=== PATIENT | female | born 1930 | race Caucasian/White ===

== ENCOUNTER 2016-10-19 18:42 | Inpatient (IN) | payer OTHER ==
[2016-10-19] MEDS ORDERED: NS 2,000 ML ONE (19:12)
[2016-10-19] MEDS ORDERED: NS 1,000 ML IV ONE ×4 (19:29→21:29)
--- NOTE | 2016-10-19 19:32 | PROVIDER DOCUMENTATION ---
HPI-Cardiac General - General Chief Complaint: N/V/D Stated Complaint: NAUSEA, DIARRHEA, ABNORMAL LABS Time Seen by Provider: 10/19/16 19:27 Source: patient Allergies/Adverse Reactions: Patient Allergies Allergy/AdvReac Type Severity Reaction Status Date / Time No Known Allergies Allergy Verified 10/19/16 20:30 Home Medications: Home Medication List Medication Instructions Recorded Confirmed Last Taken Type Glucosamine/D3/Boswellia Pepper 1 each PO QAM 10/03/16 10/19/16 10/18/16 10:00 History [Osteo Bi-Flex Caplet] Levothyroxine [Synthroid] 75 microgm PO QAM 10/03/16 10/19/16 10/19/16 06:00 History Lorazepam [Ativan] 0.5 mg PO QPM 10/03/16 10/19/16 10/18/16 22:00 History Losartan Potassium 12.5 mg PO QAM 10/03/16 10/19/16 10/18/16 History Mupirocin Ointment [Bactroban 1 applicatn TOP TID 10/03/16 10/19/16 10/19/16 06: 30 History Ointment] Omeprazole 40 mg PO QAM 10/03/16 10/19/16 10/19/16 06:00 History SIMVAstatin [Zocor] 40 mg PO QHS 10/03/16 10/19/16 10/18/16 17:00 History Acetaminophen [Tylenol] 650 mg PO Q4H PRN PRN #0 tablet 10/17/16 10/19/16 Unknown Rx Diltiazem [Cardizem] 60 mg PO Q6H #0 tablet 10/17/16 10/19/16 10/19/16 04:00 Rx Hydrocortisone 2.5% Cream 1 gm MN BID #0 tube 10/17/16 10/19/16 10/18/16 10:00 Rx [Anusol-Hc Cream] Magnesium Oxide [Mag-Ox] 800 mg PO BID #0 tablet 10/17/16 10/19/16 10/18/16 10: 00 Rx Menthol/Zinc Oxide Ointment 1 gm TOP PRN PRN #0 tube 10/17/16 10/19/16 Unknown Rx [Calmoseptine Ointment] Ubidecarenone [Co Q-10] 200 mg PO QAM 10/19/16 10/19/16 10/18/16 10:00 History - History of Present Illness-Cardiac Nature of Presenting Problem: Pt is a 86 yof who presents to ER via EMS from [facility] with CC of hypotension. Pt's caregiver reports that pt was recently discharged from hospital after being admitted for 8 days for rectal bleeding. On exam, pt's 1st recorded B/P was 52/25, 2nd reading was 72/40. Pt's caregiver reports that pt has had a loss of appetite and 10 episodes of diarrhea today. Quality of Pain: reports: none Severity in ED: mild Onset/Duration: just prior to arrival Timing: still present Context/Activities at Onset: reports: light activity Associated Symptoms: reports: fatigue, syncope (near-syncope), weakness. denies : edema, nausea, rash, shortness of breath, vomiting Review of Systems - Adult - REVIEW OF SYSTEMS - ADULT Constitutional: reports: fatique. denies: chills, fever, night sweats Eyes: reports: no symptoms reported Ears, Nose, Mouth & Throat: reports: no symptoms reported Cardiovascular: reports: irregular heart rate, syncope (near-syncope; B/P 52/25) . denies: chest pain, edema, heart murmur, orthopnea, palpitations, poor circulation Respiratory: reports: no symptoms reported Gastrointestinal: reports: diarrhea, poor appetite. denies: abdominal pain, hematemesis, constipation, difficulty swallowing, frequent heartburn, nausea, rectal bleeding, vomiting Genitourinary: reports: no symptoms reported Musculoskeletal: reports: no symptoms reported Integumentary: reports: no symptoms reported Neurological: reports: no symptoms reported Psychiatric: reports: no symptoms reported Endocrine: reports: no symptoms reported Hematologic/Lymphatic: reports: no symptoms reported Allergic/Immunologic: reports: no symptoms reported All Other Systems: Reviewed and Negative Past History - Adult - PAST MEDICAL HISTORY-ADULT Review of Records: reports: Nursing Assessment Review, Medications Reviewed Cardiovascular: reports: A-Fib, HTN Endocrine/Immune: reports: thyroid disorder - PRIOR SURGERIES/PROCEDURES Surgical/Procedure History: reports: appendectomy, cholecystectomy, hysterectomy , tonsillectomy, orthopedic (extremity) (toe surgery), other (cataract removal) - IMMUNIZATION STATUS Childhood Immunizations: See Nurse Assessment Flu Vaccine: See Nurse Assessment Physical Exam-General - PHYSICAL EXAM-ADULT Initial Vital Signs Reviewed: Yes - CONSTITUTIONAL General Appearance: alert, moderate distress, lethargic, slow to respond - NECK Neck: non-tender, full range of motion, supple - RESPIRATORY Respiratory: chest non-tender, lungs clear, normal breath sounds - CARDIOVASCULAR Cardiovascular: regular rate, rhythm, other (hypotensive (52/25)) - GASTROINTESTINAL (ABDOMEN) Abdominal Exam: normal bowel sounds, non tender, soft - NEUROLOGIC Neurologic: grossly normal, no motor/sensory deficits - PSYCHIATRIC Psych/Mental Status: normal mood/affect, normal thought content, normal thought process, oriented x 3, depressed affect Progress - PLAN OF CARE/RESULTS Progress/Plan/Lab Results: POC: Labs On exam, Dr. Mendiola talked to pt's son over the phone, who reported that pt is DNR. Vital Signs - 24 hr 10/19/16 10/19/16 10/19/16 18:53 19:00 19:10 Temperature 97.5 F L Pulse Rate 71 69 Respiratory 20 15 Rate Blood Pressure 70/42 70/42 67/43 O2 Sat by Pulse 95 98 Oximetry 10/19/16 10/19/16 20:05 20:39 Temperature Pulse Rate 88 Respiratory 19 20 Rate Blood Pressure 76/41 66/41 O2 Sat by Pulse 99 96 Oximetry Orders Category Date Time Status DNR [Resuscitation Status] Routine Care 10/19/16 19:45 Ordered CHEST-PORTABLE [RAD] Stat Exams 10/19/16 19:47 Taken CBC WITH ELECTRONIC DIFF [HEME] Stat Lab 10/19/16 19:40 Completed COMPREHENSIVE METABOLIC PANEL [CHEM] Stat Lab 10/19/16 19:40 Completed TYPE & SCREEN [BBK] Stat Lab 10/19/16 19:40 Completed 0.9% Sodium Chloride Inj [Ns] 1,000 ml Med 10/19/16 19:12 Discontinued .ROUTE As Directed 0.9% Sodium Chloride Inj [Ns] 1,000 ml Med 10/19/16 19:29 Discontinued IV 999 mls/hr 0.9% Sodium Chloride Inj [Ns] 1,000 ml Med 10/19/16 20:29 Active IV 999 mls/hr EKG [EKG] Stat Ther 10/19/16 19:31 Ordered Laboratory Tests 10/19/16 10/19/16 10/19/16 19:40 19:40 19:40 WBC 12.47 H RBC 2.91 L Hgb 8.7 L Hct 27.7 L MCV 95.2 MCH 29.9 MCHC 31.4 L RDW Std Deviation 17.9 H Plt Count 256 MPV 9.3 Immature Gran % (Auto) 0.3 Neut % (Auto) 84.5 H Lymph % (Auto) 7.7 L Bibb % (Auto) 7.2 Eos % (Auto) 0.2 Baso % (Auto) 0.1 Immature Gran # (Auto) 0.04 Neut # (Auto) 10.54 H Lymph # (Auto) 0.96 L Bibb # (Auto) 0.90 H Eos # (Auto) 0.02 Baso # (Auto) 0.01 Sodium 135 L Potassium 3.1 L D Chloride 96 L Carbon Dioxide 26 Anion Gap 13 BUN 18 D Creatinine 1.4 H Estimated GFR/1.73 m2 36 BUN/Creatinine Ratio 13 Glucose 119 H Calculated Osmolality 273 Calcium 7.4 L D Total Bilirubin 0.43 AST 12 ALT 7 L Alkaline Phosphatase 94 Total Protein 4.2 L Albumin 2.2 L Globulin 2.0 Albumin/Globulin Ratio 1.1 Blood Type O POSITIVE Antibody Screen NEGATIVE - REASSESSMENT Reassessment #1 Time Reassessed: 20:00 Status: worsening (Pt's B/P was 58/23 and then 76/41; Pt's son was in the room and discussed pt's situation) - EKG 1 Time of EKG reading by physician:: 20:12 EKG Read and Signed by:: Juan Mendiola EKG Interpretation (*Must complete 3 of following elements*): Abnormal (L axis deviation; Septal infarct, age undetermined) - CONSULTS/PCP/HOSPITALIST Notification #1 *Consult/PCP/Hospitalist*: Dr. Lilly (Hospitalist) Time Discussed: 20:49 Consult Disposition: Admit Departure - Departure Time of Disposition Order: 20:50 DIAGNOSIS: Hypotension Qualifiers: Hypotension type: unspecified hypotension type Qualified Code(s): I95.9 - Hypotension, unspecified Disposition: ADMITTED INPATIENT 09 Certified Medical Emergency: Emergent Condition: Stable Additional Instructions: ED Follow Up Instructions: You have been treated by a care provider in the Emergency Department. These instructions are being provided to you so you can have an understanding of how to care for yourself upon discharge. Upon discharge from the Emergency Department, you are responsible for making arrangements for follow-up care by a physician of your choice. Take all prescribed medications as directed. Return to the Emergency Department immediately for any new or worsening symptoms. You may call the Physician Referral phone number at [phone] to obtain a list of Physicians who are taking new patients. Referrals: Samira Lester MD [Primary Care Provider] - - Critical Care Note Total Time (mins): 30 Critical Care Statement: This patient required my direct personal management to treat or rule out processes, the absence of which, could potentiallly result in sudden, clinically significant life or limb threatening deterioration. Attestation - Scribe Verification/Attestation Scribe:: Breezy Smiley Acting as Scribe for:: Juan Mendiola Scribkev documention review:: This chart was documented by a scribe and accurately reflects the service the provider performed and the decisions made by the provider.
[2016-10-19 19:55] LABS: MANUAL DIFF NEEDED? NO
[2016-10-19 20:03] LABS: BASO% 0.1 % (0.0-0.8); EOS# 0.02 X1000 (0.0-0.7); EOS% 0.2 % (0.0-10.0); HEMATOCRIT 27.7 % (37.0-47.0); HEMOGLOBIN 8.7 g/dL (12.0-16.0); IMM GRAN# 0.04 X1000 (0.0-0.04); IMM GRAN% 0.3 % (0.0-0.5); LYMPH# 0.96 X1000 (1.2-3.4); LYMPH% 7.7 % (20.5-51.1); MCH 29.9 PG (27-31); MCHC 31.4 g/dL (33-37); MCV 95.2 FL (81-99); MONO% 7.2 % (1.7-9.3); MPV 9.3 FL (7.4-10.4); NEUT% 84.5 % (42.2-75.2); PLT 256 X1000 (130-400); RBC 2.91 XMIL (4.2-5.4)
[2016-10-19 20:28] LABS: ALBUMIN 2.2 g/dL (3.5-5.0); CALCIUM 7.4 mg/dL (8.8-10.2); POTASSIUM 3.1 mmol/L (3.5-5.1); TOTAL BILIRUBIN 0.43 mg/dL (0.20-1.00); TOTAL PROTEIN 4.2 g/dL (6.3-8.3)
[2016-10-19] MEDS: LEVOPHED 8 MG in D5 1/2 NS 250 ML IV SCH ×3 (21:25→22:03)
[2016-10-19] MEDS: PROTONIX IV SCH (22:40)
[2016-10-19] MEDS: SODIUM CHLORIDE 0.9% INJ SCH (22:40)
[2016-10-19] MEDS: FLAGYL 500 MG/NS 100 ML IV SCH (23:00)
[2016-10-20] MEDS: POTASSIUM CHLORIDE 20 MEQ/SWI 100 ML IV SCH ×2 (00:12→01:46)
[2016-10-20] MEDS ORDERED: NS 250 ML ONE (01:07)
[2016-10-20] MEDS: CARDIZEM PO SCH ×6 (01:40→23:12)
[2016-10-20] MEDS: CALMOSEPTINE OINTMENT TOP PRN (01:46)
[2016-10-20 03:41] LABS: BASO% 0.1 % (0.0-0.8); EOS# 0.01 X1000 (0.0-0.7); EOS% 0.1 % (0.0-10.0); HEMATOCRIT 35.8 % (37.0-47.0); HEMOGLOBIN 11.9 g/dL (12.0-16.0); IMM GRAN# 0.05 X1000 (0.0-0.04); IMM GRAN% 0.4 % (0.0-0.5); LYMPH# 0.99 X1000 (1.2-3.4); LYMPH% 7.4 % (20.5-51.1); MANUAL DIFF NEEDED? NO; MCH 30.8 PG (27-31); MCHC 33.2 g/dL (33-37); MCV 92.7 FL (81-99); MONO# 0.88 X1000 (0.11-0.59); MONO% 6.5 % (1.7-9.3); MPV 9.2 FL (7.4-10.4); NEUT% 85.5 % (42.2-75.2); PLT 295 X1000 (130-400); RBC 3.86 XMIL (4.2-5.4)
[2016-10-20 03:55] LABS: MAGNESIUM 1.8 mg/dL (1.5-2.7); POTASSIUM 3.9 mmol/L (3.5-5.1)
[2016-10-20] MEDS: FLAGYL 500 MG/NS 100 ML IV SCH ×4 (04:15→22:30)
--- NOTE | 2016-10-20 06:48 | HISTORY AND PHYSICAL ---
PRIMARY CARE PROVIDER: I believe is Dr. Guille Benz CHIEF COMPLAINT: Diarrhea. HISTORY OF PRESENT ILLNESS: This is an 86-year-old female, who was previously a patient of Dr. Sanchez, who I believe Dr. Guille Benz has been seeing. She was recently admitted on 10/03/2016 with a suspected GI bleed and transfused; however, she, to my knowledge, never had any EGD performed or a colonoscopy related to the acuity of her illness. 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 They both agree that she is a do not resuscitate level 1. She has a history of atrial fibrillation and was on Eliquis, which was stopped after her bleeding. She also has hypertension, hypothyroidism and Fuchs' dystrophy, which has caused her to have multiple eye surgeries. At any rate, she states that she had roughly 10 loose stools, which her caregiver stated had a peculiar smell. She came into the emergency room and was noted to be hypotensive with a blood pressure first noted of 58/23 and she was given fluid bolusing x3 L and will be admitted to the ICU for further evaluation and treatment. PAST MEDICAL HISTORY: 1. Atrial fibrillation, previously anticoagulated with Eliquis which was stopped on her last admission to the hospital. 2. Hypertension. 3. Hypothyroidism. 4. Carbuncle which had an I D. 5. Sebaceous cyst of her right lower pelvis which had an I D. 6. Chronic kidney disease. 7. Anxiety. 8. GERD. 9. Diverticulosis. 10. Osteoarthritis. 11. Hyperlipidemia. PREVIOUS SURGICAL HISTORY: 1. Multiple eye surgeries. 2. Hysterectomy. 3. Cholecystectomy. 4. Appendectomy. 5. Tonsillectomy. 6. Toe surgery. 7. Cataract surgery. SOCIAL HISTORY: She has been at [facility] since her discharge. She has a full-time caregiver. Mom denies tobacco, alcohol or illicit drug use. Family is at bedside. Son is very attentive. FAMILY HISTORY: Positive for diabetes mellitus, hypertension chronic kidney disease and rheumatoid arthritis of first-degree relatives. ALLERGIES: No known drug allergies. HOME MEDICATIONS: 1. Ativan 0.5 mg p.o. q.a.m. 2. Losartan potassium 12.5 mg p.o. q.a.m. 3. Zocor 40 mg p.o. at bedtime. 4. Omeprazole 40 mg p.o. q.a.m. 5. Synthroid 75 mcg p.o. q.a.m. 6. Osteo Bi-Flex 1 p.o. q.a.m. 7. Bactroban appointment 1 topically t.i.d. 8. Tylenol 650 p.o. q.4 h p.r.n. 9. Cardizem 60 mg p.o. q.6 h p.r.n. 10. Anusol HC 1 g b.i.d. 11. Magnesium oxide 800 mg p.o. b.i.d. 12. Calmoseptine ointment 1 topically p.r.n. 13. CoQ10 200 mg p.o. q.a.m. REVIEW OF SYSTEMS: Fourteen point review of systems conducted with the patient. She is positive for nausea with no vomiting and diarrhea. Denies hematochezia or melena. Denies dysuria. Positive for abdominal cramping. Denies chest pain, dizziness. Other pertinent positives for admission are listed above in the HPI. PHYSICAL EXAMINATION: VITAL SIGNS: Temperature 97.5 degrees, pulse 88, respirations 20, blood pressure 66/41, oxygen saturation 96% on 3 L nasal cannula. GENERAL: A pleasant 86-year-old female, lying in the ER bed, answers all questions appropriately. Does carry a diagnosis of mild dementia; however, she was alert and oriented x3. HEENT: Head is atraumatic, normocephalic. Pupils equal, round, reactive to light. Extraocular eye movement intact. Sclerae is anicteric. Conjunctivae is very pale. Oral mucosa dry. Lips were noted to be chapped. NECK: Supple. Mild skin tenting was noted. No JVD. No carotid bruit on auscultation. Trachea is midline. CARDIAC: Irregular rhythm. S1-S2 appreciated. No murmurs, gallops, or rubs. LUNGS: Clear to auscultation bilaterally. No rhonchi, wheezes or rales. ABDOMEN: Soft, nondistended. Diffusely tender to palpation. Bowel sounds hyperactive in all 4 quadrants. No pulsatile mass. No organomegaly. SKIN: Pale, warm dry and intact. No acute lesions or rash. NEUROLOGICAL: Alert and oriented x3. No focal or motor deficits noted. GENITOURINARY: Patient voids. No bladder distention. Otherwise deferred. LABORATORY DATA: WBC 12.47, hemoglobin 8.7, hematocrit 27.7, platelet count 256,000. Sodium 135, potassium 3.1, chloride 96, carbon dioxide 26, BUN 18, creatinine 1.4, glucose 119. ASSESSMENT AND PLAN: 1. Anemia likely secondary to gastrointestinal bleed. We will consult Dr. Foss. Transfuse 1 unit of packed red blood cells. Check hemoglobin and hematocrit q.4 hours. Start Protonix 40 mg intravenous push q.12 hours. 2. Acute kidney injury. The patient was given 3 L fluid bolus. We will continue normal saline at 150 mL an hour. 3. Fluid volume depletion. See #2. 4. Hypokalemia. Patient's potassium was marginally low; however, she appears to be fluid volume depleted. We will give 20 mEq of potassium at this time. 5. Hypertension. Now hypotensive. Hold home medications. 6. Acute diarrhea. It is possible that this is the a secondary to gastrointestinal bleeding. Also the patient has been on antibiotics. We will treat with Flagyl 500 mg IV q.6 hours at this time. Send Clostridium difficile as well as, occult blood and stool culture. 7. Atrial fibrillation. Continue patient's Cardizem as she is hypotensive and will be on Levophed. 8. Hypothyroidism. Continue Synthroid. 9. Further recommendations per patient clinical course. 10. Code status discussed with patient and son at bedside. The patient will be DNR level 1 and then. Dictated by LITO Basilio for Ca Lilly MD
--- NOTE | 2016-10-20 07:18 | Diag Imaging Result Document ---
PROCEDURE NAME: CHEST-PORTABLE - 10/19/2016 SINGLE FRONTAL RADIOGRAPH OF THE CHEST: COMPARISON: 10/15/2016. FINDINGS: Lung volumes are low, similar to the previous study. Linear atelectasis at the lower lung zone on the left appears to have improved somewhat. No new consolidations are identified. There is a stable large hiatal hernia. Cardiac silhouette is unchanged. IMPRESSION: Slight improvement of mild subsegmental atelectasis at the left lower lung zone. Essentially stable, otherwise.
[2016-10-20] MEDS: PROTONIX IV SCH ×2 (09:14→23:09)
[2016-10-20] MEDS: ANUSOL-HC CREAM PR SCH ×2 (09:14→20:55)
[2016-10-20] MEDS: BACTROBAN OINTMENT TOP SCH ×3 (09:14→16:37)
[2016-10-20] MEDS: SYNTHROID PO SCH (09:14)
[2016-10-20] MEDS: SODIUM CHLORIDE 0.9% INJ SCH ×2 (09:14→23:09)
[2016-10-20 10:10] LABS: HEMATOCRIT 34.4 % (37.0-47.0); HEMOGLOBIN 11.3 g/dL (12.0-16.0)
[2016-10-20] MEDS: NS 1,000 ML IV SCH ×2 (11:47→23:12)
[2016-10-20] MEDS: MERREM 500 MG in NS 50 ML IV SCH ×2 (12:04→18:22)
[2016-10-20] MEDS: LEVOPHED 8 MG in D5 1/2 NS 250 ML IV SCH (12:06)
[2016-10-20 12:44] LABS: HEMATOCRIT 36.6 % (37.0-47.0); HEMOGLOBIN 11.8 g/dL (12.0-16.0)
--- NOTE | 2016-10-20 13:12 | PROGRESS NOTE ---
DATE: 10/20/2016 SUBJECTIVE: Today Ms. Stein refers to be doing fine. I understand she got transferred from the rehab center here because she was hypotensive and having profuse diarrhea. Upon presentation, she was found to have a blood pressure of 58/23. OBJECTIVE: Vital Signs: Blood pressure is 108/60, pulse of 94, respiration is 15, temperature is 98.2 degrees. General exam: Ms. Stein is an 86-year-old, female. She is in bed. She did not seem to be in any remarkable distress. HEENT: Mucosa is pink and moist. Anicteric. Acyanotic. Neck: Neck is supple. Chest: Good air entry bilaterally. No crepitations. No rhonchi. Cardiovascular: Regular rate and rhythm. Abdomen: Soft, mildly tender. Bowel sounds are present. Extremities: No pedal edema. [employer]: Patient is alert, seems to be mildly disoriented. LABORATORY DATA: WBC is 13.44, hemoglobin is 11.3, platelet count of 296. Sodium is 128, potassium is 3.9, chloride is 102, bicarbonate is 25, creatinine is 1.2, glucose is 141. ASSESSMENT: 1. Hypotension, unclear source, but it is very likely patient had volume depletion from excessive diarrhea and became hypotensive. It could also be hemoglobin and hematocrit is ridiculously lower than when she was last discharged, so she could be gastrointestinal bleed. Lastly, this could be sepsis. She was started on metronidazole for gastrointestinal coverage. I am going to add meropenem for a broader coverage. We will put in a Ross catheter, monitor intake/output, start her on some intravenous fluids since she continues to be hypotensive even on pressors, we will do a cortisol level to see what is the stress response. 2. Profuse diarrhea in the residential. Over here, the patient has not had any bowel movement. The patient was on antibiotics before, so there is always the risk of Clostridium difficile. Other lab studies have been ordered. Patient has prophylactically been started on intravenous metronidazole. If this is confirmed, will probably have to add oral vancomycin. 3. History of atrial fibrillation currently rate controlled. 4. Acute kidney injury likely from volume depletion. Patient is getting intravenous fluids. 5. Normocytic anemia of acute blood loss likely from the gastrointestinal tract. We have not had any sample yet to look for occult blood. However, patient does not seemingly have an overt hematemesis or melena or enterorrhagia. Will however wait to test this whenever she has a bowel movement. Patient is already on BID proton pump inhibitor at least for now, and let gastroenterology review her at a later date. I have discussed her with Dr Whitney who is her PCP and will move her to his service. MTDD
[2016-10-20 13:44] LABS: URINE CULTURE NEEDED? NO; URINE SOURCE CATH
[2016-10-20 13:49] LABS: BILIRUBIN URINE NEGATIVE (NEGATIVE); BLOOD URINE NEGATIVE (NEGATIVE); COLOR YELLOW; GLUCOSE URINE NEGATIVE (NEGATIVE); LEUKOCYTES URINE NEGATIVE (NEGATIVE); NITRITE URINE NEGATIVE (NEGATIVE); PROTEIN URINE TRACE mg/dL (NEGATIVE); SP GRAVITY URINE 1.012; TURBIDITY URINE CLEAR (CLEAR); URINE MICRO REVIEW NEEDED? YES; UROBILINOGEN URINE NORMAL (NORMAL)
[2016-10-20 14:17] LABS: UR EPITHELIAL CELLS <10 /HPF (<10); URINE BACTERIA NEGATIVE /HPF; URINE RBC <10 /HPF (<10); URINE WBC <10 /HPF (<10)
[2016-10-20 14:24] LABS: URINE CASTS NONE SEEN
--- NOTE | 2016-10-20 14:46 | PROGRESS NOTE ---
DATE: 10/20/2016 Came in with diarrhea. 86-year-old female, previously a patient of Dr. Sanchez. The patient was admitted on 10/03/2016 with suspected GI bleed and transfused. At that time she was on Eliquis and had bleeding from the nose, diffuse bleeding from the GI tract. She has long history of atrial fibrillation. She stayed in atrial fibrillation. Was in delirium and confusion for several days and then slowly seemed to progress and started eating again and able to get out of the hospital but prolonged hospital stay. PAST MEDICAL HISTORY: 1. Atrial fib, chronic. We have elected to stop the Eliquis. Remains in atrial fib now, chronic atrial fibrillation. 2. Hypertension. 3. Hypothyroidism. 4. Carbuncle which we I and D'ed recently. 5. Sebaceous cyst in the right lower pelvis which had an I and D in my office. 6. Chronic kidney disease. 7. Anxiety. 8. Gastroesophageal reflux disease. 9. Diverticulosis. 10. Osteoarthritis. 11. Hyperlipidemia. PAST SURGICAL HISTORY: 1. Multiple eye surgeries. 2. Hysterectomy. 3. Cholecystectomy. 4. Appendectomy. 5. Tonsillectomy. 6. Toe surgery. 7. Cataract surgery. She was admitted, had anemia. Suspect that she had some GI bleeding. Dr. Foss consulted. He was not following last time but she was not in a shape to undergo EGD or colonoscopy at that time. I gave her 1 unit of packed red blood cells although hemoglobin was 8.7 when she arrived. Acute kidney injury. Serum creatinine was 1.4. We will give her some fluids. Fluid volume depletion. We will continue present fluids. Continue to be atrial fib. Watch rate. I have looked over orders. She is on Cardizem 30 mg p.o. q.6 hours, meropenem 500 mg q.8, levothyroxine 75 mcg q.a.m. Flagyl she is getting 500 mg q.6 hours.
[2016-10-20] MEDS: PRED FORTE 1% OPH SUSPENSION LEFT EYE SCH (16:36)
[2016-10-20 18:21] LABS: HEMATOCRIT 36.6 % (37.0-47.0); HEMOGLOBIN 11.7 g/dL (12.0-16.0)
[2016-10-20] MEDS: ATIVAN PO SCH (20:56)
[2016-10-20 21:49] LABS: HEMATOCRIT 36.4 % (37.0-47.0); HEMOGLOBIN 11.6 g/dL (12.0-16.0)
--- NOTE | 2016-10-20 23:30 | CONSULTATION ---
DATE OF CONSULTATION: 10/20/2016 REFERRING PHYSICIAN: Stoney Llanos M.D. PRIMARY CARE PHYSICIAN: Guille Benz M.D. PRIMARY DICE TABLE PERSON,: Demetrius Foss M.D. INDICATION FOR CONSULTATION: 1. Normocytic anemia. 2. Diarrhea. 3. Hypotension. HISTORY OF PRESENT ILLNESS: The patient is an 86-year-old white female who was recently admitted with a possible GI bleed while on Eliquis. Her GI bleed resolved without intervention. She was discharged to home on 10/17/2016. She was subsequently readmitted on 2016 with diarrhea greater than 10 bowel movements per day, hypotension with a blood pressure of 58 /23 and failure to thrive. She was noted to have a normocytic anemia thought possibly secondary to acute GI blood loss. However since admission she has had no defecation and no evidence of active bleeding. She was transfused 1 unit of blood and treated with IV fluids. We are asked to participate in her care due to the diarrhea and possible GI bleeding. PAST MEDICAL HISTORY: 1. Atrial fibrillation which is treated with Eliquis. 2. Hypertension. 3. Hypothyroidism. 4. Carbuncle. 5. Sedation cyst. 6. Chronic kidney disease. 7. Anxiety. 8. GERD. 9. Diverticulosis. 10. Osteoarthritis. 11. Hyperlipidemia. 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 13. Hiatal hernia. 14. Erosive esophagitis. 15. Erosive gastritis. 16. Erosive duodenitis. 17. Fundic gland polyp. 18. Nonbleeding colonic AVMs. 19. Adenomatous colon polyps. 20. Diverticulosis. 21. Internal hemorrhoids. 22. External hemorrhoids. PAST SURGICAL HISTORY: 1. Multiple eye surgeries. 2. Hysterectomy. 3. Cholecystectomy. 4. Appendectomy. 5. Tonsillectomy. 6. Toe surgery. 7. Cataract surgery. SOCIAL HISTORY: The patient has been at [facility] since her discharge. She has a full-time caregiver. There is no history of alcohol, tobacco, recreational drug use. FAMILY HISTORY: Positive for diabetes, hypertension, coronary artery disease and rheumatoid arthritis. MEDICATION ALLERGIES: None. HOME MEDICATIONS: 1. Ativan. 2. Losartan. 3. Zocor. 4. Omeprazole. 5. Synthroid. 6. Osteo Bi-Flex. 7. Bactroban. 8. Tylenol. 9. Cardizem. 10. Anusol. 11. Magnesium oxide. 12. . 13. CoQ10. REVIEW OF SYSTEMS: Unable to obtain as the patient was sleeping. According to the chart she complained of nausea earlier today but denies vomiting. There is diarrhea since hospital discharge. PHYSICAL EXAM: Vital signs: Her blood pressure is 104/44, pulse is 97, respirations 17, temperature of 97.5 degrees. HEENT: Unremarkable. Chest: Clear to auscultation with normal expiratory effort. Cardiovascular Exam: Reveals regular rate and rhythm with no gallops, rubs. Abdominal Exam: Reveals normoactive bowel sounds. The abdomen is soft and nontender. Extremities: Bilaterally are negative for cyanosis, clubbing, or edema. OBJECTIVE DATA: Reveals a hemoglobin of 8.7 with hematocrit of 27.7 and a white count of 12.47 with 256,000 platelets on admission. Posttransfusion on 10/20/2016 hemoglobin 11.6, hematocrit of 36.4 and white count of 13.44. She has 295,000 platelets. Sodium on 2016 reveals sodium of 138, potassium 3.9, chloride 102, CO2 of 25, BUN 16, creatinine 1.2 with a glucose 141. Calcium is 8.0 with magnesium 1.8. Her plasma lactate is 1.2 and cortisol 3.0. IMPRESSION: 1. Normocytic anemia. 2. Recent gastrointestinal bleed on Eliquis. 3. Diarrhea. 4. Leukocytosis. 5. Hypotension. 6. Atrial fibrillation. 7. Acute kidney injury. RECOMMENDATION: 1. From a GI perspective, I agree with plans to treat her with broad-spectrum antibiotics. 2. She has had no bowel movement today. Therefore, I would monitor her clinically. 3. I agree with checking stool for C. difficile toxin as well as fecal white blood cell. She was recently treated with antibiotics for urinary tract infection and therefore is at risk for C. difficile colitis. 4. Her hemoglobin has dropped considerably compared to her hemoglobin at time of discharge on 10/16/2016. I will defer to Dr. Demetrius Foss, who will return Saturday, to determine if she needs endoscopic intervention. She is at high risk for complications as she is on blood thinner and given her age as well as her comorbidity. 5. Will follow along with you. Please feel free to contact us over the weekend if you have any additional questions or there is a change in her clinical status. MARIS
[2016-10-21] MEDS: MERREM 500 MG in NS 50 ML IV SCH (02:30)
[2016-10-21] MEDS: FLAGYL 500 MG/NS 100 ML IV SCH ×4 (03:37→22:39)
[2016-10-21] MEDS: LEVOPHED 8 MG in D5 1/2 NS 250 ML IV SCH (04:24)
[2016-10-21] MEDS: CARDIZEM PO SCH ×4 (04:45→22:40)
[2016-10-21] MEDS ORDERED: CORTROSYN IV ONE (06:00)
[2016-10-21] MEDS: ANUSOL-HC CREAM PR SCH ×2 (08:44→20:03)
[2016-10-21] MEDS: QUESTRAN LIGHT PO SCH ×2 (08:44→21:12)
[2016-10-21] MEDS: PRED FORTE 1% OPH SUSPENSION LEFT EYE SCH ×3 (08:44→16:17)
--- NOTE | 2016-10-21 08:54 | PROGRESS NOTE ---
DATE: 10/21/2016 SUBJECTIVE: Ms. Stein is awake and alert. She is asking for some regular food. OBJECTIVE: Vital signs: Temperature 98.3, pulse 88, respirations 20, blood pressure 118/69. HEENT: Pupils are equal and round. Neck: CVP less than 6 cm. Lungs: Clear in all lung parekh. Cardiovascular: She remains in atrial fibrillation. Regular rhythm without murmurs. Abdomen: Soft. Skin: Warm and dry. Intake and output: Urine output over 800 mL. LABORATORY: Hematocrit stable at 36, hemoglobin 11. ASSESSMENT AND PLAN: 1. Normocytic anemia. Plan to treat her conservatively. Advance her diet. Will how we do. Hemoglobin and hematocrit are stable. I do not see any evidence of active bleeding at this point. 2. Acute kidney injury. Giving her some fluids. Will watch. 3. Hypokalemia. Supplemented. 4. Hypertension, aware. 5. Acute diarrhea. Patient has been on antibiotics with Flagyl for potential Clostridium difficile which was negative.
[2016-10-21] MEDS: PROTONIX IV SCH ×2 (09:19→22:39)
[2016-10-21] MEDS: SODIUM CHLORIDE 0.9% INJ SCH ×2 (09:19→22:39)
[2016-10-21] MEDS: BACTROBAN OINTMENT TOP SCH ×3 (09:19→16:18)
[2016-10-21] MEDS: SYNTHROID PO SCH (09:19)
[2016-10-21] MEDS: ZOFRAN IV PRN (10:05)
[2016-10-21] MEDS: NS 1,000 ML IV SCH ×3 (12:21→22:40)
[2016-10-21] MEDS: ATIVAN IV PRN (15:36)
[2016-10-21] MEDS: SOLU-CORTEF IV SCH ×2 (16:17→22:47)
[2016-10-21] MEDS: ATIVAN PO SCH (21:12)
[2016-10-22] MEDS: FLAGYL 500 MG/NS 100 ML IV SCH ×4 (03:50→22:05)
[2016-10-22] MEDS: ATIVAN IV PRN (03:59)
[2016-10-22] MEDS: CARDIZEM PO SCH ×4 (04:51→22:15)
--- NOTE | 2016-10-22 06:35 | EKG Report ---
Test Performed on : 10/19/2016 8:12:23 PM Test Reason : arrythmia Blood Pressure : / mmHG Vent. Rate : 073 BPM Atrial Rate : 073 BPM P-R Int : 220 ms QRS Dur : 090 ms QT Int : 462 ms P-R-T Axes : 042 -49 -08 degrees QTc Int : 508 ms Sinus rhythm. with marked sinus arrhythmia. with 1st degree AV block. Left axis deviation Septal infarct , age undetermined Abnormal ECG When compared with ECG of 05-OCT-2016 05:30, Sinus rhythm. has replaced Atrial fibrillation. Vent. rate has decreased BY [address] no longer depressed in Lateral leads Nonspecific T wave abnormality now evident in Inferior leads Nonspecific T wave abnormality, worse in Lateral leads Unconfirmed Result
[2016-10-22] MEDS: QUESTRAN LIGHT PO SCH ×2 (08:29→21:14)
[2016-10-22] MEDS: SOLU-CORTEF IV SCH ×3 (08:29→23:15)
[2016-10-22] MEDS: SYNTHROID PO SCH (08:29)
[2016-10-22] MEDS: ANUSOL-HC CREAM PR SCH ×2 (08:34→21:13)
[2016-10-22] MEDS: PRED FORTE 1% OPH SUSPENSION LEFT EYE SCH ×3 (08:35→16:23)
[2016-10-22] MEDS: NS 1,000 ML IV SCH ×2 (09:23→22:04)
[2016-10-22] MEDS: TYLENOL PO PRN ×3 (09:24→22:15)
[2016-10-22] MEDS: SODIUM CHLORIDE 0.9% INJ SCH ×2 (09:24→22:05)
[2016-10-22] MEDS: PROTONIX IV SCH ×2 (09:24→22:04)
[2016-10-22] MEDS: BACTROBAN OINTMENT TOP SCH ×3 (09:24→16:23)
--- NOTE | 2016-10-22 09:48 | PROGRESS NOTE ---
DATE: 10/22/2016 SUBJECTIVE: Ms. Stein had some confusion last night. Tried to pull out her IV. She appears comfortable this morning. Blood pressure was fluctuating and had some hypotension. I started her on Solu-Cortef. It appears that she has adrenal insufficiency. No sign of active bleeding. OBJECTIVE: Vital signs: Temperature 97.6, pulse 100, respirations 17, blood pressure 111/54. Pupils are equal and round. CVP less than 6 cm. Lungs: Clear in all lung parekh. Cardiovascular: Regular rhythm and rate without murmur or S3. : Her urine output is 790 mL. LAB: Hematocrit has remained stable at 6. Chemistries from the 18 looked good. Creatinine back down to 1.2. ASSESSMENT AND PLAN: 1. Normocytic anemia, but she has had some blood loss anemia and her stools are guaiac positive. At this point, I do not see active brisk bleeding. Will continue to try and feed her. 2. Hypotension, suspect adrenal insufficiency on Solu-Cortef. Will back this down a little bit. 3. Acute kidney injury which is resolved with fluids. 4. Blood pressure, hypotension seems better on the Solu-Cortef. 5. Some diarrhea, loose stool, will watch. Stool studies thus far positive for blood. The C difficile was negative. No growth on blood cultures.
--- NOTE | 2016-10-22 15:53 | PROGRESS NOTE ---
DATE: 10/22/2016 SUBJECTIVE: The patient is lying in bed with restraints in place. She is somewhat alert but does have periods of confusion. From the nurse report, she has been pulling out her IV and trying to get up. She has had to be restrained. The nurse denies any visible active bleeding. No reported bright red blood or black stools. She has had some soft loose stools. Hemoccult was positive. Stool studies were negative for C. difficile. OBJECTIVE: General: Patient is somewhat alert but has periods of confusion. She has a history of dementia. I have talked with the sitters that are with her today. Respiratory: Lung sounds essentially clear. Abdomen: Soft, nontender. Positive bowel sounds. Vital Signs: Temperature 97.4 degrees, pulse 96, respirations 21, blood pressure 126/65. LABORATORY: Hematology on 10/20: WBC 13.44, hemoglobin 11.6, hematocrit 36.4. Chemistry: Sodium 138, potassium 3.9, chloride 102, CO2 25, BUN 16, creatinine 1.2, glucose 141. ASSESSMENT: 1. Anemia. Received 1 unit of packed red blood cells since been back in the hospital. 2. Hemoccult-positive stool. 3. Hypotension. Vital signs have been stable. 4. Dementia with confusion. PLAN: Continue supportive care. Continue to monitor hemoglobin and hematocrit. Monitor for any active bleeding. I will discuss this case with Dr. Foss about further plans and recommendations since she was readmitted to the hospital. Further plans will be made per him. Dictated by LITO Cote for Demetrius Foss MD
[2016-10-22] MEDS: ATIVAN PO SCH (21:14)
[2016-10-23] MEDS: FLAGYL 500 MG/NS 100 ML IV SCH ×2 (03:38→09:13)
[2016-10-23] MEDS: TYLENOL PO PRN ×3 (03:47→14:38)
[2016-10-23] MEDS: CARDIZEM PO SCH ×4 (05:33→22:46)
[2016-10-23] MEDS: SOLU-CORTEF IV SCH ×3 (07:49→23:31)
[2016-10-23] MEDS: ATIVAN IV PRN ×2 (07:50→14:39)
[2016-10-23] MEDS: SYNTHROID PO SCH (07:59)
[2016-10-23] MEDS: ANUSOL-HC CREAM PR SCH ×2 (07:59→22:46)
[2016-10-23] MEDS: QUESTRAN LIGHT PO SCH ×2 (07:59→22:54)
[2016-10-23] MEDS: PRED FORTE 1% OPH SUSPENSION LEFT EYE SCH ×3 (07:59→16:03)
[2016-10-23] MEDS: BACTROBAN OINTMENT TOP SCH ×3 (08:00→16:03)
[2016-10-23] MEDS: SODIUM CHLORIDE 0.9% INJ SCH ×2 (09:13→22:46)
[2016-10-23] MEDS: NS 1,000 ML IV SCH ×2 (09:13→22:55)
[2016-10-23] MEDS: PROTONIX IV SCH ×2 (09:13→22:46)
[2016-10-23] MEDS ORDERED: NS 500 ML IV ONE ×2 (09:30→15:38)
[2016-10-23 10:12] LABS: HEMATOCRIT 34.2 % (37.0-47.0); HEMOGLOBIN 10.9 g/dL (12.0-16.0); IMM GRAN# 0.03 X1000 (0.0-0.04); IMM GRAN% 0.5 % (0.0-0.5); LYMPH% 9.2 % (20.5-51.1); MANUAL DIFF NEEDED? YES; MCHC 31.9 g/dL (33-37); MCV 94.2 FL (81-99); MONO# 0.32 X1000 (0.11-0.59); MONO% 4.9 % (1.7-9.3); MPV 8.5 FL (7.4-10.4); NEUT% 85.4 % (42.2-75.2); PLT 324 X1000 (130-400); RBC 3.63 XMIL (4.2-5.4)
[2016-10-23 10:30] LABS: AGAP 10; ALBUMIN 2.5 g/dL (3.5-5.0); ALKALINE PHOSPHATASE 96 U/L (32-104); BUN 13 mg/dL (8-22); CALCIUM 8.1 mg/dL (8.8-10.2); CHLORIDE 109 mmol/L (98-107); COSMO 280; GOT 11 U/L (10-30); GPT 7 U/L (10-36); MAGNESIUM 1.5 mg/dL (1.5-2.7); POTASSIUM 3.9 mmol/L (3.5-5.1); SODIUM 139 mmol/L (136-145); TCO2 20 mmol/L (25-35); TOTAL BILIRUBIN 0.27 mg/dL (0.20-1.00); TOTAL PROTEIN 4.9 g/dL (6.3-8.3)
[2016-10-23 10:36] LABS: BANDS 2 % (0-1); LYMPHS 6 % (21-51); MONO 2 % (1-9)
--- NOTE | 2016-10-23 11:01 | Diag Imaging Result Document ---
PROCEDURE NAME: CHEST-PORTABLE - 10/23/2016 SINGLE FRONTAL RADIOGRAPH OF THE CHEST: COMPARISON: 10/19/2016. FINDINGS: Lung volumes are very low. There is likely an effusion that has developed on the right and probably on the left as well. Bibasilar atelectasis and/or infiltrate is probably slightly worse on the left. However, there has been interval development of right basilar atelectasis and/or infiltrate. Cardiac silhouette is stable. IMPRESSION: Bibasilar atelectasis and/or infiltrates that has developed during the interval on the right and likely bilateral effusions.
--- NOTE | 2016-10-23 14:03 | PROGRESS NOTE ---
DATE: 10/23/2016 SUBJECTIVE: Ms. Stein is more confused. The urine output is diminished. OBJECTIVE: Vital Signs: Blood pressure is doing better, temp 97.8 degrees, pulse 106 respirations 25, blood pressure 129/70. HEENT: Pupils are equal. CVP less than 6 cm. Lungs: Clear in all lung parekh anterior lateral. Cardiovascular exam: Regular rhythm and rate without murmur or S3. Abdomen: Soft. Skin: Warm and dry. : Urine output 700 mL. LABS: Hematocrit stable at 36 back on the . I will recheck some more with another CBC today. Electrolytes: Creatinine was last 1.2, so we will check those this morning. ASSESSMENT AND PLAN: 1. Diminished urine output. More confusion. The blood pressure is doing better. Decrease the Solu-Cortef. She has got an anemia which is stable. No sign of active bleeding. We will check her hematocrit again. Look through her orders. She is on Flagyl intravenous every 6 hours. I think I will stop that and see if it will help her confusion as well. 2. Delirium. Will decrease the Solu-Cortef. Stop the Flagyl. Note that Clostridium difficile was negative for antigen and toxin. 3. Decreased renal output. Check her serum creatinine and electrolytes again this morning. Fluids going in at 85 mL an hour. To recall, previous echocardiogram done in May 2016 showed well preserved left ventricular function.
--- NOTE | 2016-10-23 15:09 | PROGRESS NOTE ---
DATE: 10/23/2016 SUBJECTIVE: Patient is lying in bed. She is still restrained. She is alert to person and place but she still has periods of confusion where she tries to pull things out. She has a sitter at her bedside. She denies any complaints. OBJECTIVE: Generally: Patient is awake and alert to person and place but she has some periods of confusion and she pulls on her leads in IV. I have talked with the sitter. She states she had a formed bowel movement today. No noted bleeding. Respiratory: Lung sounds essentially clear. Abdomen: Soft, nontender, positive bowel sounds. Vital Signs: Temperature 97.8 degrees, pulse 108, respirations 26, blood pressure 136/75. LABORATORY: Hematology. White count 6.52, hemoglobin 10.9, hematocrit 34.2, MCV 94.2. Chemistry. Sodium 139, potassium 3.9, chloride 109, CO2 20, BUN 13, creatinine 0.7, glucose 148. ASSESSMENT AND PLAN: 1. Anemia. 2. History of gastrointestinal bleed. No active bleeding noted now. 3. Decreased urine output. Patient has received an intravenous fluid bolus. PLAN: Continue supportive care. Continue to monitor hemoglobin and hematocrit. Monitor for any active bleeding. Further plans will be made according to her symptoms and findings. We will continue to follow and be available as needed. Dictated by LITO Cote for Demetrius Foss MD
[2016-10-23] MEDS: HALDOL IV PRN ×2 (15:57→22:48)
[2016-10-23] MEDS: ATIVAN PO SCH (22:52)
[2016-10-24] MEDS: CARDIZEM PO SCH ×4 (05:33→20:00)
[2016-10-24] MEDS: HALDOL IV PRN (06:43)
[2016-10-24] MEDS: ATIVAN IV PRN ×2 (07:10→14:48)
--- NOTE | 2016-10-24 07:28 | Diag Imaging Result Document ---
PROCEDURE NAME: CHEST-PORTABLE - 10/24/2016 SINGLE FRONTAL RADIOGRAPH OF THE CHEST: COMPARISON: 10/23/2016. FINDINGS: Inspiration is slightly better than the previous study. There is likely a small effusion at least on the right that is probably stable given differences in inspiration. There is better aeration at both lung bases Subsegmental atelectasis has decreased slightly. No new consolidations identified. Cardiac silhouette is stable. IMPRESSION: Better inspiration with a slight decrease in atelectasis. Essentially stable, otherwise.
[2016-10-24] MEDS: SOLU-CORTEF IV SCH ×2 (07:55→18:55)
[2016-10-24] MEDS: QUESTRAN LIGHT PO SCH ×2 (08:00→20:02)
[2016-10-24] MEDS: SYNTHROID PO SCH (08:00)
[2016-10-24] MEDS: PRED FORTE 1% OPH SUSPENSION LEFT EYE SCH ×3 (08:01→20:02)
[2016-10-24] MEDS: BACTROBAN OINTMENT TOP SCH ×4 (08:01→20:11)
[2016-10-24] MEDS: ANUSOL-HC CREAM PR SCH ×2 (08:01→20:02)
--- NOTE | 2016-10-24 08:08 | EKG Report ---
Test Performed on : 10/24/2016 07:38:36 AM Test Reason : HR 130's - 160's Blood Pressure : / mmHG Vent. Rate : 160 BPM Atrial Rate : 141 BPM P-R Int : 000 ms QRS Dur : 086 ms QT Int : 310 ms P-R-T Axes : 000 -63 078 degrees QTc Int : 505 ms Atrial fibrillation. with rapid ventricular response. Left axis deviation Low voltage QRS Possible Anterolateral infarct (cited on or before 19-OCT-2016) Abnormal ECG When compared with ECG of 19-OCT-2016 20:12, (Unconfirmed) Atrial fibrillation. has replaced Normal sinus rhythm. Confirmed by Matti Thomas MD ([id number]) on 10/24/2016 9:48:29 PM
[2016-10-24 08:35] LABS: MANUAL DIFF NEEDED? NO
[2016-10-24 08:42] LABS: EOS# 0.06 X1000 (0.0-0.7); EOS% 0.7 % (0.0-10.0); HEMATOCRIT 36.6 % (37.0-47.0); HEMOGLOBIN 11.6 g/dL (12.0-16.0); IMM GRAN# 0.05 X1000 (0.0-0.04); IMM GRAN% 0.6 % (0.0-0.5); LYMPH# 0.65 X1000 (1.2-3.4); LYMPH% 7.7 % (20.5-51.1); MCH 30.4 PG (27-31); MCHC 31.7 g/dL (33-37); MCV 95.8 FL (81-99); MONO# 0.66 X1000 (0.11-0.59); MONO% 7.9 % (1.7-9.3); MPV 9.4 FL (7.4-10.4); NEUT% 83.1 % (42.2-75.2); PLT 298 X1000 (130-400); RBC 3.82 XMIL (4.2-5.4)
[2016-10-24 09:10] LABS: AGAP 14; BUN 14 mg/dL (8-22); CALCIUM 8.3 mg/dL (8.8-10.2); CHLORIDE 108 mmol/L (98-107); COSMO 279; POTASSIUM 4.9 mmol/L (3.5-5.1); SODIUM 139 mmol/L (136-145); TCO2 17 mmol/L (25-35)
[2016-10-24] MEDS: SODIUM CHLORIDE 0.9% INJ SCH (09:39)
[2016-10-24] MEDS: PROTONIX IV SCH (09:39)
[2016-10-24] MEDS: NS 1,000 ML IV SCH (09:39)
--- NOTE | 2016-10-24 11:26 | PROGRESS NOTE ---
DATE: 10/24/2016 SUBJECTIVE: Ms. Stein is doing a little better. She had some confusion. The Haldol worked pretty good yesterday, and this morning did not help much. I gave her a little bit of Ativan which helped. Urine output is improved marginally. Blood pressures remain fairly well. Heart rate did go up, she remains in atrial fibrillation and she is on Cardizem 30 mg q.6h. I went up to 60 mg q. 6h. PHYSICAL EXAMINATION: Vitals: Pulse 110 at present time. Respirations 24, blood pressure 126/85. CVP less than 6 cm. Lungs: Clear anterolateral. Cardiovascular regular: Regular rhythm and rate without murmur or S3. Abdomen: Soft. Skin: Warm and dry. Genitourinary: Good urine output. LAB: White count 8390, hematocrit 36, platelet count 298,000. Sodium 139, potassium 4.9, chloride 108, bicarb was 17, BUN 14, creatinine 0.8. ASSESSMENT AND PLAN: 1. Decrease her atelectasis, respiratory effort good. Lungs appear to have good air and gas exchange. 2. Delirium. Seems a little better. Haldol seemed to be effective yesterday. Ativan seemed to be more effective this morning. 3. Adrenal insufficiency. 4. Hypotension. I have decreased the hydrocortisone and she seems to be doing better. 5. Atrial fibrillation with rapid rate. I have increased the Cardizem. Encourage p.o. intake. See if we can move her to [facility] .
[2016-10-24] MEDS ORDERED: LASIX IV ONE (15:15)
[2016-10-24] MEDS ORDERED: NS 1,000 ML IV SCH (15:16)
[2016-10-24] MEDS: DUONEB (A & A) INH PRN ×2 (15:21→17:42)
[2016-10-24] MEDS: LOVENOX SUBQ SCH (18:10)
[2016-10-24] MEDS: ATIVAN PO SCH (19:59)
[2016-10-24] MEDS: CALMOSEPTINE OINTMENT TOP PRN (20:14)
[2016-10-24] MEDS: NS 500 ML IV SCH (20:23)
[2016-10-24] MEDS: ZOSYN 3.375 GM/NS 50 ML IV SCH (20:23)
[2016-10-24] MEDS ORDERED: CARDIZEM IV ONE (23:16)
[2016-10-25] MEDS: CARDIZEM 100 MG/NS 100 ML IV SCH ×4 (00:02→20:01)
[2016-10-25] MEDS: ATIVAN IV PRN ×2 (00:03→04:52)
[2016-10-25] MEDS: PROTONIX IV SCH ×3 (01:49→23:09)
[2016-10-25] MEDS: SODIUM CHLORIDE 0.9% INJ SCH ×2 (01:49→10:13)
[2016-10-25] MEDS: HALDOL IV PRN (01:50)
[2016-10-25] MEDS: SOLU-CORTEF IV SCH ×4 (01:50→23:09)
[2016-10-25] MEDS: CARDIZEM PO SCH (04:57)
[2016-10-25] MEDS: ZOSYN 3.375 GM/NS 50 ML IV SCH ×4 (05:14→20:01)
[2016-10-25] MEDS: LOVENOX SUBQ SCH ×2 (05:14→17:10)
--- NOTE | 2016-10-25 07:48 | Diag Imaging Result Document ---
PROCEDURE NAME: ABD/PELVIS/PULM ARTERIES - 10/24/2016 CTA CHEST: COMPARISON: None available. FINDINGS: There is a prominent filling defect seen in the distal left main pulmonary artery consistent with acute pulmonary embolism. There is patchy atherosclerotic disease throughout the aorta. There is aneurysmal dilation of the ascending aorta measuring up to 4.2 cm in diameter. There is cardiomegaly. There is a fairly prominent hiatal hernia that has shifted toward the left. There is a small left pleural effusion and a esiqfzsz-es-sujnf size right pleural effusion. There is bibasilar atelectasis. No obvious pulmonary infarct can be identified at this time. There is diffuse anasarca involving the surrounding soft tissues. There are severe degenerative changes involving the shoulder, and there are degenerative changes throughout the spine. IMPRESSION: 1. Acute pulmonary embolism with a filling defect in the left main pulmonary artery as described. 2. Cardiomegaly. 3. Aneurysmal dilation of the ascending aorta. 4. Bilateral pleural effusions, largest on the right with bibasilar atelectasis. 5. Diffuse anasarca.
[2016-10-25] MEDS: DUONEB (A & A) INH PRN ×4 (08:15→19:11)
[2016-10-25] MEDS ORDERED: LASIX IV ONE (09:02)
[2016-10-25] MEDS: SYNTHROID PO SCH (09:03)
[2016-10-25] MEDS: QUESTRAN LIGHT PO SCH ×2 (09:04→20:02)
[2016-10-25] MEDS: BACTROBAN OINTMENT TOP SCH ×3 (09:05→20:02)
[2016-10-25] MEDS: ANUSOL-HC CREAM PR SCH ×2 (09:05→20:02)
[2016-10-25] MEDS: PRED FORTE 1% OPH SUSPENSION LEFT EYE SCH ×3 (09:05→20:02)
[2016-10-25 09:47] LABS: ALLEN TEST YES; BE -6.3 mmoll (-3.0-3.0); BLOOD TYPE ARTERIAL; DRAW SITE R RADIAL; METHB 1.5 % (0.0-1.5); PCO2(98.6) 29 mmHg (35-45); PO2(98.6) 53 mmHg (60-100); SAMPLE BLOOD; SAO2 91.8 % (95.0-100.0); THB 11.1 g/dL (11.5-17.4); pH(98.6) 7.39 (7.35-7.45)
[2016-10-25 09:49] LABS: MODALITY CANNULA
[2016-10-25] MEDS: NS 1,000 ML IV SCH (10:12)
--- NOTE | 2016-10-25 10:16 | PROGRESS NOTE ---
DATE: 10/25/2016 SUBJECTIVE: Ms. Stein is breathing a little better, less wheezing. There is still some confusion, although this seems a little better today. I did an abdominal and pelvic CT. Acute pulmonary embolism detected left main pulmonary artery as described. Aneurysm dilatation of the ascending aorta, bilateral pleural effusions, larger on the right. Bibasilar atelectasis and diffuse anasarca. OBJECTIVE: Vital Signs: Temperature 98.0 degrees, pulse 121, respirations 28. HEENT: Pupils were equal and round. CVP around 8 cm. Lungs: Decreased breath sounds both bases. She has some wheezing and expiratory wheezing. Prolonged expiratory phase. Abdomen: Soft, nontender. Extremities: She has a 1+ edema. LABORATORY DATA: Urine output is 1377. White count 8390, hematocrit was 36, platelet count 298,000. Sodium 139, potassium 4.9, chloride 108, bicarb 17, BUN 14, creatinine 0.8. ASSESSMENT AND PLAN: 1. Pulmonary thromboemboli, bronchospasm. Continue breathing treatments. Back on Lovenox. 2. Gastrointestinal bleed which is concerning. Back on Lovenox. I would like to avoid an inferior vena cava filter but this may be something that is forced on us. 3. Adrenal insufficiency. Continue Solu-Cortef. 4. Hypotension related to adrenal insufficiency and pulmonary thromboemboli. 5. Atrial fibrillation. I put her on a Cardizem drip. Note CT of her chest suggests pleural effusion and I have decreased her fluids. I am going to 21 mL of normal saline every hour. I am going to start her on some Lasix q.12 hours to see if this will help. Encouraged her to try and get some food down. Use BiPAP as necessary. Ask Pulmonary to assist in decision process.
--- NOTE | 2016-10-25 13:55 | CONSULTATION ---
DATE OF CONSULTATION: 10/25/2016 REFERRING PHYSICIAN: Dr. Benz. CHIEF COMPLAINT: Initially was diarrhea. HISTORY OF PRESENT ILLNESS: This is an 86-year-old female with a past medical history of atrial fibrillation, hypertension, hypothyroidism, anxiety, GERD, diverticulosis, osteoarthritis, hyperlipidemia, that initially presented to the hospital with complaints of diarrhea. The patient does have a history of atrial fibrillation and was being treated with Eliquis but this was stopped after she had a gastrointestinal bleed. Since then she has not developed a PTE. The family agrees that the patient is a do not resuscitate level 1 and discussion was had about IVC filter placement and family does not believe that this would be a good clinical path. At this time the patient is moderately confused. She is dyspneic but denies any abdominal pain, nausea, or vomiting, or chest pain. REVIEW OF SYSTEMS: A 10-point review of systems was conducted. Pertinent as noted in the HPI, otherwise noncontributory. PAST MEDICAL HISTORY: As mentioned in HPI, otherwise noncontributory. PAST SURGICAL HISTORY: Multiple eye surgeries, hysterectomy, cholecystectomy, appendectomy, tonsillectomy, toe surgery, cataract surgery. SOCIAL HISTORY: The patient does require a full-time caregiver. Denies use of tobacco, alcohol, or illicit drugs. FAMILY HISTORY: Notable for diabetes, hypertension, CKD, rheumatoid arthritis, ALLERGIES: No known drug allergies. ACTIVE MEDICATIONS: Tylenol, DuoNeb, Questran, Cardizem, Lovenox, Haldol, Solu- Cortef, Synthroid, Ativan, Zofran, Protonix, Zosyn. PHYSICAL EXAMINATION: Vital Signs: Temperature 98, heart rate 121, respiratory rate 28, blood pressure 106/66, oxygen saturation 92%. General: Awake, lying in bed, family at bedside. Mild respiratory distress noted. HEENT: Normocephalic and atraumatic. PERRL. Cardiovascular: Irregular, tachycardic rate. S1, S2 present. Chest: Reduced entry. Abdomen: Soft, nontender. Bowel sounds present in all quadrants. Extremities: Trace pedal edema. Neurologic: Alert and oriented x1. The patient does have a history of mild dementia that is more confused at this time. LABS AND INVESTIGATIONS: WBC 8.39, RBC 3.82, hemoglobin 11.6, hematocrit 36.6, platelet count 298,000. Sodium 139, potassium 4.9, chloride 108, carbon dioxide 17, anion gap 14, BUN 14, creatinine 0.8, glucose 111. IMAGING: CT abdomen and pelvis and pulmonary arteries show acute pulmonary embolism with filling defect in the left main pulmonary artery. ASSESSMENT AND PLAN: This is an 86-year-old female with a past medical history as mentioned in the HPI, that presented to the hospital initially for complaint of diarrhea. Since then she has developed a PTE in the left main pulmonary artery. GIB and GI is seeing. IVC filter may not have much added value more that associated risks. The patient is dyspneic at this time and a little more confused than normal. The family seems to understand her condition and have been very tentative. The conversation was had about the possibility of IVC filter placement and the family are in the process of discussing but are leaning towards this not being appropriate clinical path. For now will continue her Lovenox and Protonix for gastrointestinal prophylaxis. Also supplemental oxygen and inhaled bronchodilators. Will check a blood gas this morning. Further recommendations pending diagnostic studies. Thank you for the courtesy of this consult. Dictated by LITO Garg for Kaleb Rockwell MD MTDD
[2016-10-25] MEDS: CALMOSEPTINE OINTMENT TOP PRN (20:02)
[2016-10-25] MEDS: ATIVAN PO SCH (20:02)
[2016-10-25] MEDS: TYLENOL PO PRN (20:02)
[2016-10-26] MEDS: CARDIZEM 100 MG/NS 100 ML IV SCH ×5 (02:06→21:40)
[2016-10-26] MEDS: NS 1,000 ML IV SCH ×2 (02:19→23:09)
[2016-10-26] MEDS: ATIVAN IV PRN ×2 (02:19→13:50)
[2016-10-26] MEDS: ZOSYN 3.375 GM/NS 50 ML IV SCH ×4 (02:19→21:41)
[2016-10-26] MEDS: DUONEB (A & A) INH PRN ×8 (02:43→22:50)
[2016-10-26] MEDS: NS 500 ML IV SCH (03:49)
[2016-10-26] MEDS: LOVENOX SUBQ SCH ×2 (03:49→16:46)
[2016-10-26] MEDS: HALDOL IV PRN ×2 (03:56→23:23)
--- NOTE | 2016-10-26 09:29 | PROGRESS NOTE ---
DATE: 10/26/2016 SUBJECTIVE: Ms. Stein has some wheezing. She was awake. There is some mild confusion. She would like to go home. Blood gas: The last blood gas pH was 7.39, pCO2 29, PO2 53, O2 saturation was 89% on 32%. Blood cultures with no growth from the . Consulted Dr. Rockwell. This is an 86-year-old with past medical history of atrial fib, hypertension, hypothyroidism, anxiety, gastroesophageal reflux, diverticulosis, osteoarthritis, hyperlipidemia. She came in with complaint of diarrhea and some blood in the stool. She was treated with Eliquis and, of course, we had stopped that. She had a GI bleed. She developed a PTE. She is a do not resuscitate level 1. OBJECTIVE: Vital Signs: On exam today, this morning, temp 98.6 degrees, pulse 131, respirations of 16, blood pressure 120/71. Eyes: Pupils are equal and round. Lungs: Lungs with diffuse expiratory wheezing and some upper respiratory secretions and rattles appreciated. Cardiovascular exam: Irregular rhythm, irregular rate consistent with atrial fibrillation. Rate appears better controlled on Cardizem drip. Abdomen: Soft, nontender. Skin: Warm and dry. Trace edema at the ankles. LABS: Lab from today: Hematocrit has remained stable based on lab from yesterday. Electrolytes are unremarkable. ASSESSMENT AND PLAN: 1. With her past medical history and diarrhea since that time, pulmonary thromboembolism left main pulmonary emboli, gastroenterology seen. Inferior vena cava filter may not have much added value given her associated risks. She has got a little wheezing going on. I will give her a little bit of Lasix a day. Continue bronchodilators, continue Lovenox. She is on Protonix. 2. Very fragile underlying dementia with easy to have delirium and confusion. Appears a little better today. 3. History of gastrointestinal bleed, which is concerning. She is back on Lovenox. 4. Adrenal insufficiency. Still on Solu-Cortef. 5. Protein calorie. She is not putting much food in; she is eating a little bit, so continue to encourage that. 6. Atrial fibrillation on Cardizem drip and rate is better controlled. We will check lab again in the morning. Check another chest x-ray.
[2016-10-26] MEDS: PROTONIX IV SCH ×2 (10:52→21:41)
[2016-10-26] MEDS: QUESTRAN LIGHT PO SCH ×2 (10:52→21:41)
[2016-10-26] MEDS: SOLU-CORTEF IV SCH ×3 (10:52→23:24)
[2016-10-26] MEDS: SYNTHROID PO SCH (10:52)
[2016-10-26] MEDS: BACTROBAN OINTMENT TOP SCH ×3 (10:53→21:42)
[2016-10-26] MEDS: PRED FORTE 1% OPH SUSPENSION LEFT EYE SCH ×3 (10:53→21:43)
[2016-10-26] MEDS: CALMOSEPTINE OINTMENT TOP PRN (10:53)
[2016-10-26] MEDS: ANUSOL-HC CREAM PR SCH ×2 (10:53→21:42)
[2016-10-26] MEDS: LASIX IV SCH ×2 (10:58→21:41)
--- NOTE | 2016-10-26 11:38 | Diag Imaging Result Document ---
PROCEDURE NAME: CHEST-PORTABLE - 10/26/2016 SINGLE FRONTAL RADIOGRAPH OF THE CHEST: COMPARISON: 10/24/2016. FINDINGS: Inspiration is suboptimal. There is increasing opacity throughout the right lung suggesting worsening infiltrate and/or atelectasis. Bilateral effusions appear to be more prominent. Cardiac silhouette is stable. IMPRESSION: Increasing opacity throughout the right lung and suggestion of increased effusions bilaterally.
--- NOTE | 2016-10-26 12:22 | PROGRESS NOTE ---
DATE: 10/26/2016 SUBJECTIVE: The patient has some wheezing. She states she is having a little abdominal pain. No reported bleeding. 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 Her she is being treated for PTE. OBJECTIVE: Respiratory: Lung sounds with wheezing and some congestion. X-ray was worse today. There was increasing opacity throughout the right lung and suggestion of increased effusions bilaterally. She did receive some Lasix. Abdomen: Soft, nontender on palpation with positive bowel sounds. Vital Signs: Temperature 98.6 degrees, pulse 131, respirations 16, blood pressure 120/78. LABORATORY: Hematology on to 10/22/2016: WBC 8.39, hemoglobin 11.6, hematocrit 36.6, MCV 95.8. Chemistry: Sodium 139, potassium 4.9, chloride 108, CO2 17, BUN 14, creatinine 0.8, glucose 111. ASSESSMENT: 1. Pulmonary thromboembolism on Lovenox. 2. Dementia. 3. History of gastrointestinal bleed, which seems to have resolved. Her hemoglobin and hematocrit are stable. 4. Atrial fibrillation. PLAN: Continue supportive care. We will continue to follow hemoglobin and hematocrit and follow for any active bleeding. GI will be available as needed. Dictated by LITO Cote for Demetrius Foss MD
[2016-10-26] MEDS: TYLENOL PO PRN (13:50)
[2016-10-26] MEDS: ATIVAN PO SCH (21:41)
[2016-10-26] MEDS: SODIUM CHLORIDE 0.9% INJ SCH (21:41)
[2016-10-27] MEDS: DUONEB (A & A) INH PRN ×5 (02:33→23:33)
[2016-10-27] MEDS: CARDIZEM 100 MG/NS 100 ML IV SCH ×5 (02:35→23:38)
[2016-10-27] MEDS: LOVENOX SUBQ SCH ×2 (04:23→15:58)
[2016-10-27] MEDS: ZOSYN 3.375 GM/NS 50 ML IV SCH ×4 (04:23→21:32)
[2016-10-27] MEDS: NS 500 ML IV SCH (05:46)
[2016-10-27 05:50] LABS: HEMATOCRIT 35.3 % (37.0-47.0); HEMOGLOBIN 11.7 g/dL (12.0-16.0); IMM GRAN# 0.09 X1000 (0.0-0.04); IMM GRAN% 1.2 % (0.0-0.5); LYMPH# 0.42 X1000 (1.2-3.4); LYMPH% 5.5 % (20.5-51.1); MANUAL DIFF NEEDED? YES; MCH 29.8 PG (27-31); MCHC 33.1 g/dL (33-37); MCV 89.8 FL (81-99); MONO# 0.38 X1000 (0.11-0.59); MPV 9.2 FL (7.4-10.4); NEUT% 88.3 % (42.2-75.2); PLT 287 X1000 (130-400); RBC 3.93 XMIL (4.2-5.4)
[2016-10-27 05:57] LABS: ALBUMIN 3.3 g/dL (3.5-5.0); CALCIUM 8.3 mg/dL (8.8-10.2); MAGNESIUM 1.1 mg/dL (1.5-2.7); TOTAL BILIRUBIN 0.73 mg/dL (0.20-1.00); TOTAL PROTEIN 5.3 g/dL (6.3-8.3)
[2016-10-27 06:23] LABS: POTASSIUM 2.2 mmol/L (3.5-5.1)
[2016-10-27] MEDS ORDERED: MAGNESIUM SULFATE 2 GM/S.W.I. 50 ML IV ONE (06:40)
--- NOTE | 2016-10-27 06:57 | PROGRESS NOTE ---
DATE: 10/27/2016 SUBJECTIVE: Ms. Stein is awake and alert this morning. Breathing appears more comfortable. She was getting bathed. Her bottom looks good. The skin looks good. Ross catheter still in place. OBJECTIVE: Vital Signs: Temperature 97.4 degrees, pulse 136, respirations 24 and blood pressure 136/58. Lungs: Clear anterolateral and posterior. Cardiovascular: Irregular rhythm and irregular rate. Monitor shows she is still in atrial fibrillation. Rate is controlled. Abdomen: Soft. Skin is warm and dry. : Urine output about 400 mL. I think it is more than that. She is leaking around the Ross catheter. LABS: From this morning, white count 7660, hematocrit 35, platelet count 287,000. Sodium 145, potassium 2.2, chloride 102, bicarb 22, BUN 13, creatinine 1.0. ASSESSMENT AND PLAN: 1. Pulmonary thromboemboli. We will continue her Lovenox. Hematocrit remained stable. No sign of bleeding, which is encouraging at this point. 2. Diarrhea and some heme-positive stool. Aware. Have no choice but to anticoagulate. I do not feel adding an inferior vena cava filter at this point would be helpful. 3. Adrenal insufficiency. On Solu-Cortef. 4. Atrial fibrillation. Chronic. Rate is controlled. Much better. 5. Hypokalemia. We will supplement today. Decrease Lasix. She is getting 40 mg q.12 at this time. 6. Encourage p.o. intake 7. Episodes of delirium and confusion still. Use Ativan and Haldol as needed. Encouraged with her progress.
[2016-10-27 08:13] LABS: LYMPHS 8 % (21-51); MONO 3 % (1-9); NRBC 1 % (0-0)
[2016-10-27] MEDS: POTASSIUM CHLORIDE 20 MEQ/SWI 100 ML IV SCH ×4 (08:14→15:58)
[2016-10-27] MEDS: SODIUM CHLORIDE 0.9% INJ SCH ×2 (08:15→21:33)
[2016-10-27] MEDS: SYNTHROID PO SCH (08:15)
[2016-10-27] MEDS: PROTONIX IV SCH ×3 (08:15→21:33)
[2016-10-27] MEDS: BACTROBAN OINTMENT TOP SCH ×2 (08:16→15:58)
[2016-10-27] MEDS: SOLU-CORTEF IV SCH ×3 (08:16→23:38)
[2016-10-27] MEDS: CALMOSEPTINE OINTMENT TOP PRN ×2 (08:16→15:58)
[2016-10-27] MEDS: QUESTRAN LIGHT PO SCH ×2 (08:16→21:32)
[2016-10-27] MEDS: LASIX IV SCH ×2 (08:16→21:32)
[2016-10-27] MEDS: ANUSOL-HC CREAM PR SCH ×2 (08:16→21:33)
[2016-10-27] MEDS: PRED FORTE 1% OPH SUSPENSION LEFT EYE SCH ×3 (08:17→21:33)
[2016-10-27] MEDS: MAG-OX PO SCH ×2 (09:42→21:33)
[2016-10-27] MEDS: NS 1,000 ML IV SCH (17:34)
[2016-10-27] MEDS: ATIVAN PO SCH (21:33)
[2016-10-28] MEDS: BACTROBAN OINTMENT TOP SCH ×4 (02:17→21:22)
[2016-10-28] MEDS: NS 1,000 ML IV SCH ×2 (02:17→23:05)
[2016-10-28] MEDS: ZOSYN 3.375 GM/NS 50 ML IV SCH ×4 (03:28→21:22)
[2016-10-28] MEDS: LOVENOX SUBQ SCH ×2 (03:29→16:47)
[2016-10-28] MEDS: CARDIZEM 100 MG/NS 100 ML IV SCH ×3 (04:01→18:33)
[2016-10-28 05:36] LABS: BASO% 0.1 % (0.0-0.8); HEMATOCRIT 34.4 % (37.0-47.0); HEMOGLOBIN 11.5 g/dL (12.0-16.0); IMM GRAN# 0.07 X1000 (0.0-0.04); IMM GRAN% 0.7 % (0.0-0.5); LYMPH# 0.38 X1000 (1.2-3.4); LYMPH% 3.8 % (20.5-51.1); MANUAL DIFF NEEDED? YES; MCH 30.2 PG (27-31); MCHC 33.4 g/dL (33-37); MCV 90.3 FL (81-99); MONO# 0.42 X1000 (0.11-0.59); MONO% 4.2 % (1.7-9.3); MPV 9.1 FL (7.4-10.4); NEUT% 91.2 % (42.2-75.2); PLT 233 X1000 (130-400); RBC 3.81 XMIL (4.2-5.4)
[2016-10-28 06:43] LABS: CALCIUM 7.9 mg/dL (8.8-10.2); MAGNESIUM 1.4 mg/dL (1.5-2.7)
[2016-10-28 06:48] LABS: BANDS 1 % (0-1); LYMPHS 2 % (21-51); MONO 6 % (1-9); NRBC 1 % (0-0)
[2016-10-28] MEDS: DUONEB (A & A) INH PRN ×5 (07:16→23:23)
--- NOTE | 2016-10-28 07:16 | Diag Imaging Result Document ---
PROCEDURE NAME: CHEST-PORTABLE - 10/28/2016 AP PORTABLE CHEST, 10/28/2016 AT 0500 HOURS: FINDINGS: The inspiration is less optimal than on 10/26/2016, however, there has been relative clearing of the right lung compared to the previous study. There is still atelectasis in the right middle lobe and apparently in the left lower lobe. IMPRESSION: Improved right-sided pulmonary edema or pneumonia.
[2016-10-28 07:25] LABS: POTASSIUM 2.3 mmol/L (3.5-5.1)
[2016-10-28] MEDS: PROTONIX IV SCH ×2 (09:29→21:22)
[2016-10-28] MEDS: SOLU-CORTEF IV SCH ×3 (09:29→23:41)
[2016-10-28] MEDS: SODIUM CHLORIDE 0.9% INJ SCH ×2 (09:29→21:21)
[2016-10-28] MEDS: POTASSIUM CHLORIDE 20 MEQ/SWI 100 ML IV SCH ×4 (09:29→18:34)
[2016-10-28] MEDS: ANUSOL-HC CREAM PR SCH ×2 (09:30→21:22)
[2016-10-28] MEDS: CALMOSEPTINE OINTMENT TOP PRN ×2 (09:30→16:48)
[2016-10-28] MEDS: LASIX IV SCH ×2 (09:30→21:21)
[2016-10-28] MEDS ORDERED: MILK OF MAGNESIA PO ONE (10:09)
[2016-10-28] MEDS ORDERED: DULCOLAX PR PRN (10:09)
[2016-10-28] MEDS ORDERED: MAGNESIUM SULFATE 2 GM/S.W.I. 50 ML IV ONE (10:30)
[2016-10-28] MEDS: SYNTHROID PO SCH (10:55)
[2016-10-28] MEDS: MAG-OX PO SCH ×2 (10:55→21:21)
[2016-10-28] MEDS: QUESTRAN LIGHT PO SCH ×2 (10:55→21:21)
--- NOTE | 2016-10-28 11:13 | PROGRESS NOTE ---
DATE: 10/28/2016 SUBJECTIVE: Ms. Stein had a pretty good night. She slept pretty well. She is not eating much. She is awake this morning and oriented to person and place. Appears comfortable. No labored breathing. PHYSICAL EXAMINATION: Vital Signs: Temperature 97.3 degrees, pulse 120, respirations 26, blood pressure 113/51. HEENT: Pupils are equal and round. CVP less than 6 cm. Respiratory: The lungs are clear anterolateral. Cardiovascular Examination: Regular rhythm and rate without murmur or S3. Abdomen: Soft. Skin: Warm and dry. Is and Os: Urine output 800 mL. LAB: White count 10,010, hematocrit was 34, platelet count 233,000. Sodium 141, potassium 2.3, chloride 102, bicarb 25, BUN is 16, creatinine 1.1. Magnesium 1.4. PLAN: We will give some more magnesium today. ASSESSMENT AND PLAN: 1. Pulmonary thromboemboli. Continue her Lovenox. Does not appear to have active bleeding. Hematocrit is stable. 2. General weakness and deconditioning. 3. Atrial fibrillation, chronic. Rate is better controlled on Cardizem. 4. Adrenal insufficiency. On Solu-Cortef. 5. Hypokalemia, hypomagnesemia. Will supplement both again. REVIEW OF HER ORDERS: I do not see any chain. Continue present antibiotics. Check chest x-ray again tomorrow, electrolytes, and CBC.
[2016-10-28] MEDS: PRED FORTE 1% OPH SUSPENSION LEFT EYE SCH ×3 (12:20→21:22)
[2016-10-28] MEDS: ATIVAN PO SCH (21:21)
[2016-10-29] MEDS: HALDOL IV PRN ×4 (01:03→23:35)
[2016-10-29] MEDS: CARDIZEM 100 MG/NS 100 ML IV SCH ×4 (02:52→22:51)
[2016-10-29] MEDS: LOVENOX SUBQ SCH ×3 (02:53→16:20)
[2016-10-29] MEDS: ZOSYN 3.375 GM/NS 50 ML IV SCH ×4 (02:53→20:03)
[2016-10-29] MEDS: DUONEB (A & A) INH PRN ×5 (03:37→19:22)
[2016-10-29 05:45] LABS: BASO% 0.1 % (0.0-0.8); EOS# 0.01 X1000 (0.0-0.7); EOS% 0.1 % (0.0-10.0); HEMOGLOBIN 11.2 g/dL (12.0-16.0); IMM GRAN# 0.06 X1000 (0.0-0.04); IMM GRAN% 0.6 % (0.0-0.5); LYMPH# 0.27 X1000 (1.2-3.4); LYMPH% 2.7 % (20.5-51.1); MANUAL DIFF NEEDED? YES; MCH 30.2 PG (27-31); MCHC 32.9 g/dL (33-37); MCV 91.6 FL (81-99); MONO# 0.29 X1000 (0.11-0.59); MONO% 2.9 % (1.7-9.3); MPV 9.4 FL (7.4-10.4); NEUT% 93.6 % (42.2-75.2); PLT 185 X1000 (130-400); RBC 3.71 XMIL (4.2-5.4)
[2016-10-29 06:10] LABS: CALCIUM 7.8 mg/dL (8.8-10.2)
[2016-10-29 06:11] LABS: POTASSIUM 2.3 mmol/L (3.5-5.1)
[2016-10-29] MEDS ORDERED: BLISTEX MEDICATED BERRY LIP BALM TOP PRN (06:50)
[2016-10-29 07:13] LABS: LYMPHS 7 % (21-51); MONO 2 % (1-9)
--- NOTE | 2016-10-29 08:18 | Diag Imaging Result Document ---
PROCEDURE NAME: CHEST-PORTABLE - 10/29/2016 PORTABLE CHEST X-RAY 10/29/2016: COMPARISON: 10/28/2016. FINDINGS: Stable critically low lung volumes. Stable retrocardiac consolidation and/or effusion. No new infiltrates. IMPRESSION: Little change from prior.
[2016-10-29] MEDS: LASIX IV SCH ×2 (09:07→20:04)
[2016-10-29] MEDS: SOLU-CORTEF IV SCH ×3 (09:07→23:35)
[2016-10-29] MEDS: POTASSIUM CHLORIDE 40 MEQ in 1/2 NS 250 ML IV SCH ×2 (09:07→14:01)
[2016-10-29] MEDS: PROTONIX IV SCH ×2 (09:07→20:04)
[2016-10-29] MEDS: PRED FORTE 1% OPH SUSPENSION LEFT EYE SCH ×3 (09:08→20:10)
[2016-10-29] MEDS: MAG-OX PO SCH ×2 (09:08→20:04)
[2016-10-29] MEDS: SYNTHROID PO SCH (09:08)
[2016-10-29] MEDS: SODIUM CHLORIDE 0.9% INJ SCH ×2 (09:08→20:04)
[2016-10-29] MEDS: ANUSOL-HC CREAM PR SCH ×2 (09:09→20:12)
[2016-10-29] MEDS: BACTROBAN OINTMENT TOP SCH ×3 (09:09→20:12)
[2016-10-29] MEDS: QUESTRAN LIGHT PO SCH ×2 (10:01→20:05)
--- NOTE | 2016-10-29 10:15 | PROGRESS NOTE ---
DATE: 10/29/2016 SUBJECTIVE: Ms. Stein said that she is having a little trouble breathing. Not eating or swallowing much but she is eating some, according to the sitter. PHYSICAL EXAMINATION: Vital Signs: Temperature 98.1 degrees and it remains afebrile, pulse 104, respirations 18, blood pressure 120/40. HEENT: Pupils are equal and round. CVP less than 6 cm. Lungs: Clear in all lung parekh anterolateral. Cardiovascular Examination: Regular rhythm and rate without murmur or S3. Abdomen: Soft. Skin: Warm and dry. Is and Os: Urine output from yesterday was almost 3 L. LAB: White count 9940, hematocrit 34, platelet count 185,000. Chemistry: Sodium 140, potassium 2.3, chloride 96, bicarb 32, BUN 16, creatinine 0.9. Magnesium 2. Chest x-ray as well this morning. Little change from prior, stable, critically low lung volumes, stable retrocardiac consolidation. No effusion. No new infiltrates. ASSESSMENT AND PLAN: 1. Pulmonary thromboemboli. Continue her Lovenox. Clinically appears to be doing better. 2. General weakness and deconditioning. Work on physical therapy and her eating. 3. Atrial fibrillation, chronic. Rate is controlled on Cardizem. 4. Adrenal insufficiency. On Solu-Cortef. Blood pressure is doing much better. 5. Hypokalemia and hypomagnesemia. Magnesium is back up to normal, up to 2 but continued to supplement potassium. Encourage her oral intake. 6. Review of her orders. We are treating her for possible ongoing pneumonia as well which I think is probable. 7. Pneumonia. She is on Zosyn. Continue that every 6. 8. Pleased with renal function. Continue to diurese as there is a lot of swelling in her arms and I have her on some Lasix, just started 40 mg intravenous every 12 hours. Give her 40 mEq of potassium intravenous now and again at 1 o'clock.
[2016-10-29] MEDS: NS 1,000 ML IV SCH ×2 (11:50→22:51)
[2016-10-29] MEDS: ATIVAN PO SCH (20:04)
[2016-10-30] MEDS: ZOSYN 3.375 GM/NS 50 ML IV SCH ×4 (03:06→21:15)
[2016-10-30] MEDS: LOVENOX SUBQ SCH ×2 (03:21→15:15)
[2016-10-30] MEDS: CARDIZEM 100 MG/NS 100 ML IV SCH ×4 (05:19→21:14)
[2016-10-30 05:22] LABS: AGAP 13; BUN 15 mg/dL (8-22); CALCIUM 7.8 mg/dL (8.8-10.2); CHLORIDE 93 mmol/L (98-107); COSMO 289; POTASSIUM 2.3 mmol/L (3.5-5.1); SODIUM 143 mmol/L (136-145); TCO2 37 mmol/L (25-35)
[2016-10-30] MEDS: DUONEB (A & A) INH PRN ×2 (07:27→19:25)
[2016-10-30] MEDS: POTASSIUM CHLORIDE 20 MEQ/SWI 100 ML IV SCH ×4 (08:36→15:11)
[2016-10-30] MEDS: MAG-OX PO SCH ×2 (08:37→21:14)
[2016-10-30] MEDS: LASIX IV SCH ×2 (08:37→21:14)
[2016-10-30] MEDS: PROTONIX IV SCH ×2 (08:37→21:14)
[2016-10-30] MEDS: SOLU-CORTEF IV SCH ×2 (08:37→15:11)
[2016-10-30] MEDS: POTASSIUM CHLORIDE 20% LIQUID PO SCH (08:37)
[2016-10-30] MEDS: SODIUM CHLORIDE 0.9% INJ SCH (08:37)
[2016-10-30] MEDS: ANUSOL-HC CREAM PR SCH ×2 (08:38→21:15)
[2016-10-30] MEDS: QUESTRAN LIGHT PO SCH ×2 (08:38→21:15)
[2016-10-30] MEDS: BACTROBAN OINTMENT TOP SCH ×3 (08:38→21:15)
[2016-10-30] MEDS: SYNTHROID PO SCH (08:38)
[2016-10-30] MEDS: PRED FORTE 1% OPH SUSPENSION LEFT EYE SCH ×3 (08:39→21:15)
--- NOTE | 2016-10-30 08:39 | PROGRESS NOTE ---
DATE: 10/30/2016 SUBJECTIVE: Ms. Stein had a pretty good night. She did eat a few crackers and a few bites and is swallowing liquids better. She is alert and awake. He is requesting some shrimp to eat. OBJECTIVE: Temperature 97.8 degrees, pulse 126, respirations 18, blood pressure 148/60. CVP less than 6 cm. Lungs are clear in all lung parekh. Cardiovascular: Regular rhythm and rate without murmur or S3. Good urine output of 1900 mL. DIAGNOSTIC DATA: Lab reviewed from yesterday. White count was 9940, hematocrit 34 and stable, platelet count 185,000. Chemistries: Still potassium deficits, so will continue supplement potassium. Magnesium was up to 2 yesterday. Chest x-ray reviewed from yesterday. Little change from prior. Stable. Critically low lung volumes. Retrocardiac consolidation or effusion. No new infiltrates. ASSESSMENT AND PLAN: 1. Pulmonary thromboemboli. Continue Lovenox. Clinically appears to be doing better. 2. General weakness and deconditioning. Continue work on physical therapy and eating. 3. Atrial fibrillation. Rate controlled with Cardizem. 4. Adrenal insufficiency on Solu-Cortef which we have reduced. Blood pressure doing well. Hemodynamics doing well. 5. Hypokalemia and hypomagnesemia. Magnesium has been supplemented, and we will continue to supplement the potassium. 6. Continue to treat with antibiotics, although no sign of infiltrate. I think pneumonia has been treated and is on Zosyn, 7th day. Continue to diurese. Her fluid is going down. Clinically improving. Encouraged p.o. intake and work on her strength with physical therapy.
[2016-10-30] MEDS: CALMOSEPTINE OINTMENT TOP PRN (09:04)
[2016-10-30] MEDS: ATIVAN IV PRN (09:04)
[2016-10-30] MEDS ORDERED: POTASSIUM CHLORIDE 40 MEQ/SWI 100 ML IV ONE (13:00)
[2016-10-30] MEDS: ATIVAN PO SCH (21:14)
[2016-10-31] MEDS: NS 1,000 ML IV SCH (01:15)
[2016-10-31] MEDS: SOLU-CORTEF IV SCH ×3 (01:15→15:14)
[2016-10-31] MEDS: CARDIZEM 100 MG/NS 100 ML IV SCH ×4 (02:10→17:44)
[2016-10-31] MEDS: LOVENOX SUBQ SCH ×2 (04:07→15:15)
[2016-10-31] MEDS: ZOSYN 3.375 GM/NS 50 ML IV SCH ×4 (04:07→21:47)
[2016-10-31 06:25] LABS: AGAP 12; BUN 19 mg/dL (8-22); CALCIUM 7.6 mg/dL (8.8-10.2); CHLORIDE 91 mmol/L (98-107); COSMO 283; POTASSIUM 3.3 mmol/L (3.5-5.1); SODIUM 140 mmol/L (136-145); TCO2 37 mmol/L (25-35)
[2016-10-31] MEDS: DUONEB (A & A) INH PRN ×2 (07:40→15:47)
[2016-10-31] MEDS: PROTONIX IV SCH ×2 (08:06→21:47)
[2016-10-31] MEDS: LASIX IV SCH ×2 (08:06→21:47)
[2016-10-31] MEDS: QUESTRAN LIGHT PO SCH ×2 (08:06→21:47)
[2016-10-31] MEDS: SODIUM CHLORIDE 0.9% INJ SCH (08:06)
[2016-10-31] MEDS: SYNTHROID PO SCH (08:07)
[2016-10-31] MEDS: MAG-OX PO SCH ×2 (08:07→21:47)
[2016-10-31] MEDS: PRED FORTE 1% OPH SUSPENSION LEFT EYE SCH ×3 (08:07→21:48)
[2016-10-31] MEDS: POTASSIUM CHLORIDE 20% LIQUID PO SCH (08:08)
[2016-10-31] MEDS: BACTROBAN OINTMENT TOP SCH ×3 (08:08→21:47)
[2016-10-31] MEDS: ANUSOL-HC CREAM PR SCH ×2 (08:08→21:47)
[2016-10-31] MEDS: CALMOSEPTINE OINTMENT TOP PRN (08:08)
--- NOTE | 2016-10-31 08:31 | PROGRESS NOTE ---
DATE: 10/31/2016 SUBJECTIVE: Ms. Stein had a better night. She is breathing comfortably. She looks a little stronger. She is awake, alert and oriented x3 at this present time. She had a couple of bites of shrimp yesterday. The fluid seems to be going down in her arms and legs which is encouraging. OBJECTIVE/EXAMINATION: Vitals from this morning: Temperature 98.2 degrees, pulse 132, respirations 20, blood pressure 132/70. Lungs are clear anterolateral. Cardiovascular: Regular rate without murmur or S3. Abdomen is soft. Skin is warm and dry. O2 saturation 97%. Weight 127 pounds. Decreased edema in her arms and her legs, although she still has 1+ edema in both. I am not sure what her urine output is. Ross catheter still in place. ASSESSMENT AND PLAN: 1. Pulmonary thromboemboli. Still on Lovenox. Doing better clinically. 2. General weakness and deconditioning. Continue physical therapy. 3. Atrial fibrillation, rate controlled on Cardizem. 4. Adrenal insufficiency. On Solu-Cortef; continue. 5. Hypokalemia. 6. Hypomagnesemia. In looking at the lab, hematocrit is stable. Potassium is starting to come up. Continue to supplement potassium and magnesium. We will check again in the morning. WE have supplemented that as well.
[2016-10-31] MEDS: POTASSIUM CHLORIDE 20 MEQ/SWI 100 ML IV SCH ×2 (08:58→11:08)
[2016-10-31] MEDS: TYLENOL PO PRN (11:08)
--- NOTE | 2016-10-31 12:25 | Diag Imaging Result Document ---
PROCEDURE NAME: CHEST-1 VIEW - 10/31/2016 AP PORTABLE CHEST AT 1205 HOURS: FINDINGS: There is atelectasis in both lung bases. This was also the case on 10/29/2016. Possibility of pneumonia cannot be excluded. There is fairly severe arthritis in both shoulders. IMPRESSION: Bibasilar atelectasis particularly left lower lobe. The possibility of pneumonia cannot be excluded.
[2016-10-31] MEDS: ATIVAN PO SCH (21:47)
[2016-11-01] MEDS: SOLU-CORTEF IV SCH ×3 (00:46→16:00)
[2016-11-01] MEDS: LOVENOX SUBQ SCH ×2 (03:44→16:00)
[2016-11-01] MEDS: CARDIZEM 100 MG/NS 100 ML IV SCH ×4 (03:44→19:43)
[2016-11-01] MEDS: ZOSYN 3.375 GM/NS 50 ML IV SCH ×4 (03:44→20:09)
[2016-11-01] MEDS: NS 1,000 ML IV SCH (05:00)
[2016-11-01 05:58] LABS: AGAP 9; BUN 20 mg/dL (8-22); CALCIUM 8.1 mg/dL (8.8-10.2); CHLORIDE 91 mmol/L (98-107); COSMO 285; MAGNESIUM 1.8 mg/dL (1.5-2.7); SODIUM 141 mmol/L (136-145); TCO2 41 mmol/L (25-35)
[2016-11-01] MEDS: DUONEB (A & A) INH PRN ×4 (07:32→19:56)
--- NOTE | 2016-11-01 07:32 | PROGRESS NOTE ---
DATE: 11/01/2016 SUBJECTIVE: She was resting comfortably. Sleeping comfortably. Breathing comfortably. OBJECTIVE: Vital Signs: Remains afebrile, temp 98.4 degrees, pulse 120, respirations 30, blood pressure 124/67. CVP less than 6 cm. Respiratory: Lungs are clear anterolateral. Cardiovascular: Irregular rhythm, irregular rate. Still in atrial fibrillation on monitor. Abdomen: Soft. Extremities: With 1+ edema ankles, and her arms and just generalized edema which has improved. : Her urine output was 1300 mL. LABORATORY DATA: Sodium 141, potassium 3.0, chloride 91, bicarb 41, BUN 20, creatinine 0.7, blood sugar 158, 125, 125. ProBNP was 16,969. Chest x-ray: Bibasilar atelectasis, particularly left lower lobe. Possibility of pneumonia could not be excluded. There was atelectasis in both bases. ASSESSMENT AND PLAN: 1. Pulmonary thromboemboli on Lovenox, doing better clinically. Breathing is much more comfortable. Good air exchange and gas exchange. 2. General weakness and deconditioning. Very weak. Continue physical therapy. 3. Atrial fibrillation. Rate controlled on Cardizem. Remains in atrial fibrillation. 4. Adrenal insufficiency. She is still on Solu-Cortef q.12 hours. 5. Hypokalemia. 6. Hypomagnesemia. Continue to supplement as needed. We will give her some more potassium today. Magnesium is 1.8. Continue looking at orders. 7. Medications: She is on Mag-Ox 800 mg b.i.d. She gets potassium chloride 40 mEq every day p.o. She is on Cardizem drip. Fluids at 21 and normal saline 21 mL an hour. She is getting Lasix 40 mg IV q.12 hours. She is on Zosyn and she is getting 3.375 mg IV q.6 hours. She is on Lovenox 60 mg subcutaneous q.12 hours. Hydrocortisone 60 mg IV q.8 hours. Synthroid 75 mcg q.a.m. Protonix 40 mg IV q.12 hours and I think we can cut that down to 40 mg daily.
[2016-11-01] MEDS: POTASSIUM CHLORIDE 20 MEQ/SWI 100 ML IV SCH ×2 (08:33→10:48)
[2016-11-01] MEDS: PROTONIX IV SCH ×2 (08:34→20:09)
[2016-11-01] MEDS: SODIUM CHLORIDE 0.9% INJ SCH ×2 (08:34→20:09)
[2016-11-01] MEDS: LASIX IV SCH ×2 (08:34→20:09)
[2016-11-01] MEDS: MAG-OX PO SCH ×2 (08:43→20:09)
[2016-11-01] MEDS: SYNTHROID PO SCH (08:43)
[2016-11-01] MEDS: POTASSIUM CHLORIDE 20% LIQUID PO SCH (08:43)
[2016-11-01] MEDS: BACTROBAN OINTMENT TOP SCH ×3 (08:43→20:10)
[2016-11-01] MEDS: PRED FORTE 1% OPH SUSPENSION LEFT EYE SCH ×3 (08:43→20:10)
[2016-11-01] MEDS: QUESTRAN LIGHT PO SCH ×2 (08:43→20:09)
[2016-11-01] MEDS: ANUSOL-HC CREAM PR SCH ×2 (08:44→20:10)
[2016-11-01] MEDS: CALMOSEPTINE OINTMENT TOP PRN (08:44)
[2016-11-01] MEDS: ATIVAN PO SCH (20:09)
[2016-11-02] MEDS: SOLU-CORTEF IV SCH ×3 (01:01→22:11)
[2016-11-02] MEDS: NS 1,000 ML IV SCH (01:04)
[2016-11-02] MEDS: CARDIZEM 100 MG/NS 100 ML IV SCH ×5 (01:04→21:26)
[2016-11-02] MEDS: ZOSYN 3.375 GM/NS 50 ML IV SCH ×4 (04:03→22:11)
[2016-11-02] MEDS: LOVENOX SUBQ SCH ×2 (04:03→16:14)
[2016-11-02 04:38] LABS: ALLEN TEST YES; BE 29.1 mmoll (-3.0-3.0); BLOOD TYPE ARTERIAL; DRAW SITE R RADIAL; METHB 1.1 % (0.0-1.5); O2(CT) 15.7 mL/dL (15.0-23.0); PO2(98.6) 70 mmHg (60-100); SAMPLE BLOOD; SAO2 96.7 % (95.0-100.0); THB 11.9 g/dL (11.5-17.4)
[2016-11-02 04:42] LABS: MODALITY CANNULA; PCO2(98.6) 59 mmHg (35-45); pH(98.6) 7.58 (7.35-7.45)
[2016-11-02 06:05] LABS: AGAP 9; BUN 19 mg/dL (8-22); CALCIUM 8.2 mg/dL (8.8-10.2); CHLORIDE 91 mmol/L (98-107); COSMO 289; MAGNESIUM 1.7 mg/dL (1.5-2.7); POTASSIUM 3.4 mmol/L (3.5-5.1); SODIUM 143 mmol/L (136-145); TCO2 43 mmol/L (25-35)
[2016-11-02] MEDS: DUONEB (A & A) INH PRN ×4 (07:26→21:44)
--- NOTE | 2016-11-02 07:44 | PROGRESS NOTE ---
DATE: 11/02/2016 SUBJECTIVE: Ms. Stein and was easy to arouse. She appears comfortable. Breathing comfortably. She did eat a little more yesterday and she is requesting some coffee this morning, and remains afebrile. OBJECTIVE: Vital Signs: Temp 98.1 degrees, pulse 113, respirations 18, blood pressure 125/49. HEENT: Pupils are equal and round. CVP less than 6 cm. Lungs: Clear in all lung parekh. Cardiovascular: Regular rhythm and rate without murmur or S3. Abdomen: Soft. Skin is warm and dry. Weight 123 pounds. Urine output 2000 mL. LABORATORY AND X-RAY DATA: Sodium 143, potassium 3.4, chloride 91, BUN 19, creatinine 0.7, magnesium is 1.7, so supplement a little more potassium today. Chest x-ray from the 1st with basilar atelectasis, particularly left lower lobe. Repeat another chest x-ray in the morning. ASSESSMENT AND PLAN: 1. Pulmonary thromboemboli on Lovenox, doing better, clinically improving. 2. General weakness and deconditioning. Continue physical therapy. 3. Adrenal insufficiency. On Solu-Cortef. Blood pressure doing well. Hemodynamics much better. 4. Atrial fibrillation. Rate is controlled on Cardizem. 5. Hypokalemia with supplement. 6. Hypomagnesemia has been supplemented and level is 1.7. 7. Continue to encourage p.o. intake. Hopefully we can get her out of the hospital the first of the week. We will check another chest x-ray and supplement potassium. Check electrolytes again in the morning. 8. Review of orders: I do not see any change. She is getting potassium chloride 40 mEq p.o. daily, magnesium oxide 800 mg p.o. b.i.d., Cardizem drip. Fluids are going at 21 mL an hour. Lasix, she is getting 40 mg IV q.12 hours. We are getting some fluid off. She is on Zosyn which is 3.375 mg IV q.6 hours. I have put her on Lovenox 60 mg subcutaneous q.12 hours, which she is still on for PTE. Hydrocortisone 60 mg IV q.8 hours. I will continue that for now. Synthroid 75 mcg p.o. q.a.m. She is on cholestyramine 4 g p.o. b.i.d. for loose stools. I think that is improved. Note to review. Urine studies were all negative including C. difficile.
--- NOTE | 2016-11-02 07:56 | Diag Imaging Result Document ---
PROCEDURE NAME: CHEST-PORTABLE - 11/02/2016 AP PORTABLE CHEST AT 0720 HOURS: FINDINGS: There are degenerative changes in the shoulders. There is ill-defined opacity in the lung bases particularly the left lower lobe which has also been present on the previous study of 10/31/2016. The inspiration remains suboptimal. IMPRESSION: Poor inspiration and bibasilar atelectasis. The possibility of pneumonia in the left lower lobe cannot be excluded.
[2016-11-02] MEDS: SODIUM CHLORIDE 0.9% INJ SCH ×2 (08:49→22:11)
[2016-11-02] MEDS: SYNTHROID PO SCH (08:50)
[2016-11-02] MEDS: POTASSIUM CHLORIDE 20% LIQUID PO SCH (08:50)
[2016-11-02] MEDS: LASIX IV SCH ×2 (08:50→22:10)
[2016-11-02] MEDS: PROTONIX IV SCH ×2 (08:50→22:11)
[2016-11-02] MEDS: MAG-OX PO SCH ×2 (08:50→22:11)
[2016-11-02] MEDS: QUESTRAN LIGHT PO SCH ×2 (08:50→22:12)
[2016-11-02] MEDS: ANUSOL-HC CREAM PR SCH ×2 (08:51→22:12)
[2016-11-02] MEDS: PRED FORTE 1% OPH SUSPENSION LEFT EYE SCH ×3 (08:51→22:12)
[2016-11-02] MEDS: BACTROBAN OINTMENT TOP SCH ×3 (08:51→22:13)
[2016-11-02 09:54] LABS: ALLEN TEST YES; BE 23.7 mmoll (-3.0-3.0); BLOOD TYPE ARTERIAL; DRAW SITE R RADIAL; METHB 1.3 % (0.0-1.5); O2(CT) 17.4 mL/dL (15.0-23.0); PO2(98.6) 59 mmHg (60-100); SAMPLE BLOOD; SAO2 94.7 % (95.0-100.0); THB 13.5 g/dL (11.5-17.4); pH(98.6) 7.51 (7.35-7.45)
[2016-11-02 09:58] LABS: MODALITY CANNULA; PCO2(98.6) 64 mmHg (35-45)
[2016-11-02] MEDS: TYLENOL PO PRN (13:06)
[2016-11-02] MEDS: ATIVAN PO SCH (22:11)
[2016-11-02] MEDS: CALMOSEPTINE OINTMENT TOP PRN (22:12)
[2016-11-03] MEDS: NS 1,000 ML IV SCH ×2 (00:59→22:37)
[2016-11-03] MEDS: CARDIZEM 100 MG/NS 100 ML IV SCH ×5 (02:51→21:18)
[2016-11-03] MEDS: LOVENOX SUBQ SCH ×3 (02:51→16:01)
[2016-11-03] MEDS: ZOSYN 3.375 GM/NS 50 ML IV SCH (02:52)
[2016-11-03] MEDS: XOPENEX NEB INH PRN ×3 (03:29→15:54)
[2016-11-03 05:40] LABS: AGAP 9; BUN 20 mg/dL (8-22); CHLORIDE 89 mmol/L (98-107); COSMO 287; MAGNESIUM 1.6 mg/dL (1.5-2.7); POTASSIUM 2.8 mmol/L (3.5-5.1); SODIUM 141 mmol/L (136-145); TCO2 43 mmol/L (25-35)
[2016-11-03] MEDS: DUONEB (A & A) INH PRN (07:47)
--- NOTE | 2016-11-03 08:45 | PROGRESS NOTE ---
DATE: 11/03/2016 SUBJECTIVE: Ms Stein had a good night. She is steadily eating a little better. The swelling is going down in her arms and legs. Breathing is comfortable. OBJECTIVE: Vital Signs: Temp 99.1 degrees, pulse 126, respirations 29, blood pressure 124/58. HEENT: Pupils are equal and round. CVP less than 6 cm. Lungs: Clear in all lung parekh. Cardiovascular exam: Regular rhythm and rate without murmur or S3. Abdomen: Soft. Skin: Warm and dry. : Urine output was 2 L. LABS: Electrolytes this morning reveal potassium still low. Sodium 141, potassium 2.8, chloride 89, BUN 20, creatinine 0.7, magnesium was 1.6. ASSESSMENT AND PLAN: 1. Pulmonary thromboemboli on Lovenox, clinically improving. 2. General weakness, deconditioning. Continue physical therapy. 3. Adrenal insufficiency. I have decreased the Solu-Cortef. 4. Atrial fibrillation. Rate is controlled. 5. Hypokalemia. Continue supplement. 6. Hypomagnesemia. She is on magnesium oxide. Magnesium level looks good. Encourage her oral intake. Nutrition improving. I have cut the hydrocortisone down to 60 mg intravenous every 12 hours. She getting potassium chloride 40 mEq daily oral. Magnesium oxide 800 mg twice daily. She is on diltiazem drip, which I think I can convert to oral pretty soon. She is on Lasix 40 mg intravenous every 12 hours. She is still on the Zosyn which I think I can stop.
[2016-11-03] MEDS ORDERED: POTASSIUM CHLORIDE 40 MEQ in NS 250 ML IV ONE ×2 (09:00→13:00)
[2016-11-03] MEDS: MAG-OX PO SCH ×2 (10:08→21:20)
[2016-11-03] MEDS: SYNTHROID PO SCH (10:09)
[2016-11-03] MEDS: SOLU-CORTEF IV SCH ×2 (10:10→21:19)
[2016-11-03] MEDS: PROTONIX IV SCH ×2 (10:10→21:19)
[2016-11-03] MEDS: LASIX IV SCH ×2 (10:11→21:19)
[2016-11-03] MEDS: POTASSIUM CHLORIDE 20% LIQUID PO SCH (10:15)
[2016-11-03] MEDS: BACTROBAN OINTMENT TOP SCH ×3 (10:16→21:21)
[2016-11-03] MEDS: ANUSOL-HC CREAM PR SCH ×2 (10:17→21:20)
[2016-11-03] MEDS: QUESTRAN LIGHT PO SCH ×2 (10:17→21:19)
[2016-11-03] MEDS: PRED FORTE 1% OPH SUSPENSION LEFT EYE SCH ×3 (10:17→21:21)
[2016-11-03] MEDS: ZOFRAN IV PRN (18:00)
[2016-11-03] MEDS: SODIUM CHLORIDE 0.9% INJ SCH (21:19)
[2016-11-03] MEDS: ATIVAN PO SCH (21:20)
[2016-11-03] MEDS: CALMOSEPTINE OINTMENT TOP PRN (21:21)
[2016-11-04] MEDS: LOVENOX SUBQ SCH ×2 (02:59→16:15)
[2016-11-04] MEDS: CARDIZEM 100 MG/NS 100 ML IV SCH (02:59)
[2016-11-04 06:01] LABS: AGAP 8; BUN 22 mg/dL (8-22); CALCIUM 8.4 mg/dL (8.8-10.2); CHLORIDE 93 mmol/L (98-107); COSMO 291; MAGNESIUM 1.8 mg/dL (1.5-2.7); POTASSIUM 4.5 mmol/L (3.5-5.1); SODIUM 143 mmol/L (136-145); TCO2 42 mmol/L (25-35)
[2016-11-04] MEDS: XOPENEX NEB INH PRN ×4 (07:39→19:36)
--- NOTE | 2016-11-04 07:57 | PROGRESS NOTE ---
DATE: 11/04/2016 SUBJECTIVE: Ms. Stein had a pretty good night. She did eat a little more yesterday. Breathing is comfortable. Appears that the fluid is going down in her arms and legs. Ross catheter still in place. PHYSICAL EXAMINATION: Vital Signs: Temperature 97.7 degrees, pulse 120, respirations 18, blood pressure 128/63. HEENT: Pupils are equal, round. Lungs: Are clear anterolateral. Cardiovascular Examination: Regular rhythm and rate without murmur or S3. Abdomen: Soft. Skin: Warm and dry. Weight: 127 pounds. Is and Os: 1350 in, 800 out. LAB: From this morning, sodium 143, potassium up at 4.5, chloride 93, bicarb 42, BUN 22, creatinine 0.7. Blood sugars 123, 155, 145. Chest x-ray from the 3rd, poor inspiration, bibasilar atelectasis. Possibility of pneumonia in the left lower lobe cannot be excluded. ASSESSMENT AND PLAN: 1. Pulmonary thromboemboli, on Lovenox. Seems to be doing better, clinically improving. 2. General weakness and deconditioning. Continue physical therapy. 3. Adrenal insufficiency. I have decreased Solu-Cortef. We will decrease it some more and changing to oral. Probably change her to oral prednisone soon. 4. Atrial fibrillation, rate controlled. 5. Hypokalemia which has been supplemented, finally have caught up. 6. Hypomagnesemia. Also is supplemented and magnesium is 1.8. Creatinine 0.7. 7. Review of her orders. I have stopped her antibiotic. We will check another chest x-ray tomorrow. I am going to decrease the Lasix down to 40 mg intravenous every morning. Change the diltiazem to Cardizem by mouth.
[2016-11-04] MEDS: MAG-OX PO SCH ×2 (08:44→21:09)
[2016-11-04] MEDS: CARDIZEM PO SCH ×3 (08:44→21:08)
[2016-11-04] MEDS: SYNTHROID PO SCH (08:44)
[2016-11-04] MEDS: PRED FORTE 1% OPH SUSPENSION LEFT EYE SCH ×3 (08:45→21:17)
[2016-11-04] MEDS: SODIUM CHLORIDE 0.9% INJ SCH ×2 (08:45→21:08)
[2016-11-04] MEDS: PROTONIX IV SCH ×2 (08:45→21:08)
[2016-11-04] MEDS: SOLU-CORTEF IV SCH ×2 (08:45→21:08)
[2016-11-04] MEDS: LASIX IV SCH (08:45)
[2016-11-04] MEDS: POTASSIUM CHLORIDE 20% LIQUID PO SCH (08:45)
[2016-11-04] MEDS: ANUSOL-HC CREAM PR SCH ×2 (08:45→21:17)
[2016-11-04] MEDS: BACTROBAN OINTMENT TOP SCH ×3 (08:46→21:17)
[2016-11-04] MEDS: CALMOSEPTINE OINTMENT TOP PRN ×3 (08:46→21:16)
[2016-11-04] MEDS: QUESTRAN LIGHT PO SCH ×2 (08:46→21:08)
--- NOTE | 2016-11-04 09:21 | Diag Imaging Result Document ---
PROCEDURE NAME: CHEST-PORTABLE - 11/04/2016 SEMI-UPRIGHT AP PORTABLE CHEST: COMPARISON: Compared to 11/02/2016. FINDINGS: Poor inspiratory effort. There are bilateral infiltrates. These are more pronounced than on the prior exam. I believe there are bilateral pleural effusions. The heart is enlarged. There is central vascular distension. Longstanding arthritic changes to the right shoulder. IMPRESSION: Interval worsening with bilateral infiltrates.
[2016-11-04] MEDS: ATIVAN PO SCH (21:09)
[2016-11-05] MEDS: LOVENOX SUBQ SCH ×2 (03:20→16:34)
[2016-11-05] MEDS: CARDIZEM PO SCH ×3 (03:20→16:33)
[2016-11-05 05:39] LABS: AGAP 0; BUN 31 mg/dL (8-22); CALCIUM 8.6 mg/dL (8.8-10.2); CHLORIDE 95 mmol/L (98-107); COSMO 294; MAGNESIUM 2.5 mg/dL (1.5-2.7); POTASSIUM 5.4 mmol/L (3.5-5.1); SODIUM 143 mmol/L (136-145); TCO2 48 mmol/L (25-35)
[2016-11-05] MEDS: NS 1,000 ML IV SCH ×2 (05:43→23:18)
[2016-11-05] MEDS: XOPENEX NEB INH PRN ×4 (07:25→22:36)
[2016-11-05] MEDS: SODIUM CHLORIDE 0.9% INJ SCH (08:57)
[2016-11-05] MEDS: LASIX IV SCH ×3 (08:57→20:52)
[2016-11-05] MEDS: PROTONIX IV SCH (08:57)
[2016-11-05] MEDS: SOLU-CORTEF IV SCH ×2 (08:57→20:52)
[2016-11-05] MEDS: SYNTHROID PO SCH (08:57)
[2016-11-05] MEDS: MAG-OX PO SCH (08:57)
[2016-11-05] MEDS: QUESTRAN LIGHT PO SCH ×2 (08:58→20:53)
[2016-11-05] MEDS: BACTROBAN OINTMENT TOP SCH ×3 (09:00→20:52)
[2016-11-05] MEDS: ANUSOL-HC CREAM PR SCH ×2 (09:01→20:52)
[2016-11-05] MEDS: PRED FORTE 1% OPH SUSPENSION LEFT EYE SCH ×3 (09:01→20:52)
--- NOTE | 2016-11-05 09:15 | PROGRESS NOTE ---
DATE: 11/05/2016 SUBJECTIVE: She does not seem as awake. She is not as alert. She did not swallow as well yesterday. Breathing seems to be a little more shallow. PHYSICAL EXAMINATION: Vital Signs: Temperature 98.2, pulse 138, respirations 26, blood pressure 120/63. Lungs: Anterolateral with some scattered rhonchi. Shallow respirations. Cardiovascular Examination: Regular rhythm and rate without murmur or S3. Abdomen: Soft. Skin: Warm and dry. Is and Os: Urine output 500 mL. LAB: Sodium 143, potassium 5.4, chloride 95, bicarb 48, BUN 31, creatinine 0.8, calcium 8.6. Her chest x-ray from yesterday, interval worsening bilateral infiltrates. There bilateral infiltrates that are more pronounced than prior exam. I believe there is bilateral pleural effusion. ASSESSMENT AND PLAN: 1. Pulmonary thromboemboli, on Lovenox. Continue the Lovenox. 2. Bilateral atelectasis versus infiltrate. We are currently giving her some Lasix still. I will go up on the Lasix to 40 mg intravenous every 12 hours. 3. Some mild hyperkalemia. We have been supplementing that for a while. We will stop supplementing her potassium and go up on the Lasix to 40 mg intravenous every 12 hours. 4. Poor oral intake, poor nutrition. I encouraged her to swallow some. We will hold her magnesium oxygen as well. Continue the Lovenox 60 mg subcutaneous every 12. 5. Continue her Synthroid 75 mcg every morning, Protonix 40 mg intravenous every 12 - can probably change that to oral.
--- NOTE | 2016-11-05 10:12 | Diag Imaging Result Document ---
PROCEDURE NAME: CHEST-PORTABLE - 11/05/2016 AP PORTABLE CHEST DATED 11/05/2016 AT 0915 HOURS: FINDINGS: There is flattening of both humeral heads suggesting previous osteonecrosis. There is alveolar opacity in both lower lobes. Inspiration is suboptimal. There is some slight improvement in pneumatization of the left lung compared to the previous study of 11/04/2016. The right lung is worse however. IMPRESSION: Pulmonary edema +/- pneumonia.
[2016-11-05] MEDS: CALMOSEPTINE OINTMENT TOP PRN ×2 (20:53→23:30)
[2016-11-05] MEDS: ATIVAN PO SCH (20:53)
[2016-11-05] MEDS ORDERED: TYLENOL PR PRN (21:41)
[2016-11-05] MEDS ORDERED: VANCOMYCIN IV PER PHARMACY MISC SCH (21:45)
[2016-11-05] MEDS ORDERED: VANCOMYCIN 1,200 MG in NS 250 ML IV SCH (23:00)
[2016-11-05] MEDS: LEVAQUIN 500 MG/D5W 100 ML IV SCH (23:17)
[2016-11-05] MEDS: CARDIZEM 100 MG/NS 100 ML IV SCH (23:18)
[2016-11-06] MEDS: LOVENOX SUBQ SCH ×2 (02:44→15:29)
[2016-11-06] MEDS: XOPENEX NEB INH PRN ×4 (02:48→14:46)
[2016-11-06 05:12] LABS: BASO% 0.2 % (0.0-0.8); HEMATOCRIT 35.8 % (37.0-47.0); HEMOGLOBIN 10.3 g/dL (12.0-16.0); IMM GRAN# 0.17 X1000 (0.0-0.04); IMM GRAN% 1.8 % (0.0-0.5); LYMPH# 0.39 X1000 (1.2-3.4); LYMPH% 4.1 % (20.5-51.1); MANUAL DIFF NEEDED? YES; MCH 30.4 PG (27-31); MCHC 28.8 g/dL (33-37); MCV 105.6 FL (81-99); MONO# 0.31 X1000 (0.11-0.59); MONO% 3.3 % (1.7-9.3); NEUT% 90.6 % (42.2-75.2); PLT 149 X1000 (130-400); RBC 3.39 XMIL (4.2-5.4)
[2016-11-06 05:29] LABS: HYPOCHROM 1+; LYMPHS 8 % (21-51)
[2016-11-06 05:43] LABS: CALCIUM 8.2 mg/dL (8.8-10.2); MAGNESIUM 2.7 mg/dL (1.5-2.7); POTASSIUM 5.6 mmol/L (3.5-5.1)
[2016-11-06] MEDS: PROTONIX PO SCH (07:56)
[2016-11-06] MEDS: QUESTRAN LIGHT PO SCH ×2 (08:41→20:25)
[2016-11-06] MEDS: SYNTHROID PO SCH (08:41)
[2016-11-06] MEDS: PRED FORTE 1% OPH SUSPENSION LEFT EYE SCH ×3 (08:48→20:25)
[2016-11-06] MEDS: SOLU-CORTEF IV SCH ×2 (08:48→20:24)
[2016-11-06] MEDS: LASIX IV SCH ×2 (08:49→20:24)
[2016-11-06] MEDS: CARDIZEM 100 MG/NS 100 ML IV SCH ×2 (10:06→20:23)
[2016-11-06] MEDS: ANUSOL-HC CREAM PR SCH ×2 (10:07→20:24)
[2016-11-06] MEDS: BACTROBAN OINTMENT TOP SCH ×3 (10:07→20:25)
[2016-11-06] MEDS: HALDOL IV PRN ×2 (11:04→22:39)
--- NOTE | 2016-11-06 16:21 | PROGRESS NOTE ---
DATE: 11/06/2016 SUBJECTIVE: Ms. Stein has shallow respirations, tachypnea, more labored breathing. She is poorly responsive. Will respond to touch and pain, but she has progressively deteriorated through the day. OBJECTIVE: Vital Signs: Temperature 99.5 degrees, pulse 120, respiration is 28, blood pressure 147/71. HEENT: Pupils are equal, round. Chest: CVP less than 6 cm. Lungs: Clear in all lung parekh. Cardiovascular: Regular rhythm and rate without murmur or S3. Abdomen: Soft. Skin: Warm and dry. : Good urine output. DIAGNOSTIC DATA: Review of lab from yesterday: Hematocrit stable at 35, creatinine was 1.0. Chest x-ray from yesterday: Pulmonary edema plus-minus pneumonia. There is flattening of both humeral heads suggestive of previous osteonecrosis. There is alveolar opacity in both lower lobe. Inspiration is suboptimal. Slight improvement in pneumatization of the left lung compared to the previous study. Right lung is worse however. ASSESSMENT AND PLAN: 1. Pulmonary thromboemboli with pneumonia. On full dose Lovenox. She shows continued deterioration. She is very weak, less responsive, and prognosis is poor. 2. Severe profound general weakness and deconditioning. 3. Protein calorie malnutrition. Unable to eat or get an adequate intake. 4. Severe osteoarthritis. I think we need to turn our efforts towards comfort measures, and she also has underlying atrial fibrillation. Discussed with family we may go ahead and start subtracting from some of her medications and may even consider getting hospice in.
[2016-11-06] MEDS: ATIVAN PO SCH (20:25)
[2016-11-06] MEDS: LEVAQUIN 500 MG/D5W 100 ML IV SCH (22:40)
[2016-11-06] MEDS: ATIVAN IV PRN (23:26)
[2016-11-07] MEDS: LOVENOX SUBQ SCH ×2 (03:34→15:12)
[2016-11-07] MEDS: NS 1,000 ML IV SCH ×2 (03:34→23:41)
[2016-11-07] MEDS: HALDOL IV PRN (03:35)
[2016-11-07 06:32] LABS: BASO% 0.1 % (0.0-0.8); HEMATOCRIT 34.3 % (37.0-47.0); HEMOGLOBIN 9.5 g/dL (12.0-16.0); IMM GRAN# 0.09 X1000 (0.0-0.04); IMM GRAN% 1.1 % (0.0-0.5); LYMPH# 0.29 X1000 (1.2-3.4); LYMPH% 3.6 % (20.5-51.1); MANUAL DIFF NEEDED? YES; MCH 29.9 PG (27-31); MCHC 27.7 g/dL (33-37); MCV 107.9 FL (81-99); MONO# 0.22 X1000 (0.11-0.59); MONO% 2.8 % (1.7-9.3); MPV 9.5 FL (7.4-10.4); NEUT% 92.4 % (42.2-75.2); PLT 136 X1000 (130-400); RBC 3.18 XMIL (4.2-5.4)
[2016-11-07] MEDS: CARDIZEM 100 MG/NS 100 ML IV SCH ×3 (06:51→23:39)
[2016-11-07] MEDS: PROTONIX PO SCH (06:52)
[2016-11-07 07:05] LABS: BANDS 1 % (0-1); LYMPHS 4 % (21-51); MONO 2 % (1-9)
[2016-11-07 07:06] LABS: HYPOCHROM 1+
[2016-11-07] MEDS: XOPENEX NEB INH PRN ×2 (07:47→11:08)
[2016-11-07] MEDS: LASIX IV SCH ×2 (09:01→22:09)
[2016-11-07] MEDS: SOLU-CORTEF IV SCH ×2 (09:01→22:09)
[2016-11-07] MEDS: ANUSOL-HC CREAM PR SCH ×2 (09:02→22:10)
[2016-11-07] MEDS: PRED FORTE 1% OPH SUSPENSION LEFT EYE SCH ×3 (09:02→22:09)
[2016-11-07] MEDS: BACTROBAN OINTMENT TOP SCH ×3 (09:02→22:10)
[2016-11-07] MEDS: QUESTRAN LIGHT PO SCH ×2 (09:03→22:10)
[2016-11-07] MEDS: SYNTHROID PO SCH (09:04)
--- NOTE | 2016-11-07 09:24 | PROGRESS NOTE ---
DATE: 11/07/2016 SUBJECTIVE: Ms. Stein is still struggling, breathes shallow respirations. She appears to be uncomfortable, moaning. We are going to add some morphine. OBJECTIVE: Vital Signs: Her temperature is 97.9 degrees, pulse 124, respirations 28, blood pressure 111/37. Lungs: With scattered rhonchi and shallow respirations, but she is moving air it appears in all lung parekh. Abdomen: Soft. Skin: Warm and dry. Cardiac: Sinus tachycardia and atrial fibrillation on the monitor. ASSESSMENT AND PLAN: 1. Pulmonary thromboemboli and pneumonia. We are going to continue Lovenox and present antibiotics. 2. Adrenal insufficiency, on Solu-Cortef. 3. Atrial fibrillation with rate controlled and at times back in sinus rhythm. 4. Protein-calorie malnutrition. 5. Osteoarthritis. 6. Episodes of delirium and confusion. Looking at her orders, I do not see anything to change at this point. We will discuss maybe decreasing or stopping her antibiotics.
[2016-11-07] MEDS: MORPHINE IV PRN (17:05)
[2016-11-07] MEDS: ATIVAN PO SCH (22:10)
[2016-11-07] MEDS: CALMOSEPTINE OINTMENT TOP PRN (22:10)
[2016-11-08] MEDS: MORPHINE IV PRN (03:34)
[2016-11-08] MEDS: LOVENOX SUBQ SCH (03:34)
[2016-11-08 05:35] LABS: BASO% 0.1 % (0.0-0.8); EOS# 0.01 X1000 (0.0-0.7); EOS% 0.1 % (0.0-10.0); HEMOGLOBIN 9.7 g/dL (12.0-16.0); IMM GRAN# 0.09 X1000 (0.0-0.04); IMM GRAN% 0.9 % (0.0-0.5); LYMPH# 0.41 X1000 (1.2-3.4); MANUAL DIFF NEEDED? YES; MCHC 29.4 g/dL (33-37); MCV 105.4 FL (81-99); MONO# 0.34 X1000 (0.11-0.59); MONO% 3.3 % (1.7-9.3); MPV 9.9 FL (7.4-10.4); NEUT% 91.6 % (42.2-75.2); PLT 134 X1000 (130-400); RBC 3.13 XMIL (4.2-5.4)
[2016-11-08] MEDS: PROTONIX PO SCH (06:24)
[2016-11-08 06:52] LABS: BANDS 2 % (0-1); LYMPHS 6 % (21-51); MONO 2 % (1-9); NRBC 1 % (0-0)
[2016-11-08 07:41] VITALS: BP 72/36
[2016-11-08 09:17] LABS: ALBUMIN 2.5 g/dL (3.5-5.0); CALCIUM 8.5 mg/dL (8.8-10.2); POTASSIUM 5.2 mmol/L (3.5-5.1); TOTAL BILIRUBIN 0.34 mg/dL (0.20-1.00); TOTAL PROTEIN 5.1 g/dL (6.3-8.3)
--- NOTE | 2016-11-08 09:30 | PROGRESS NOTE ---
DATE: 11/08/2016 SUBJECTIVE: Ms. Stein does not respond. Shallow respirations. Upper airway gurgling appreciated and blood pressure is dropping. OBJECTIVE: Vital signs: Temperature 97.4 degrees, pulse 96, respirations 25, blood pressure 72/36. HEENT: Pupils are equal. CVP less than 6 cm. Lungs: Shallow respirations, but clear. Cardiovascular exam: Regular rhythm and rate. Abdomen: Soft. Extremities: She has diffuse anasarca 1+ to 2+ in her lower extremities. LAB: I did check the lab again this morning. White count 10,340, hematocrit 33, platelet count 134,000. ASSESSMENT AND PLAN: Drop in blood pressure. Respiratory effort is diminished. Very poor prognosis. I do not expect her to survive the day. We will stop the blood thinner and the Lovenox. I have informed the family of her further decline.
[2016-11-08] MEDS: SOLU-CORTEF IV SCH (10:11)
[2016-11-08] MEDS: ANUSOL-HC CREAM PR SCH (10:11)
[2016-11-08] MEDS: BACTROBAN OINTMENT TOP SCH (10:12)
[2016-11-08] MEDS: SYNTHROID PO SCH (10:12)
[2016-11-08] MEDS: LASIX IV SCH (10:12)
[2016-11-08] MEDS: PRED FORTE 1% OPH SUSPENSION LEFT EYE SCH (10:12)
[2016-11-08] MEDS: QUESTRAN LIGHT PO SCH (10:12)
--- NOTE | 2016-11-08 21:17 | DISCHARGE SUMMARY ---
ADMISSION DATE: 10/19/2016 DISCHARGE DATE: 11/08/2016 DISCHARGE SUMMARY Patient was admitted on 10/19/2016 and she on 11/08/2016. Admitted with report of GI bleeding. She had a nasal bleed as well. She had acute renal failure. We gave her some fluids and stopped her Eliquis. Renal function eventually improved. The main trouble as breathing, delirium and hypotension that required pressors for a time. After about 3 or 4 days the delirium seemed to improve a little bit. We were treating her for probable aspiration pneumonia versus just pneumonia. They felt she could have sepsis as well. We held the Eliquis and gave her some blood, gave her some fluid. It seemed to get a little better and then her respiratory status declined some more. I checked a CT of her chest and she had pulmonary arterial emboli. So we had to put her on Lovenox concerned that she would develop more bleeding but she did not. Respiratory status seemed to improve a little bit. Confusion and delirium seemed to improve. Able to advance and start eating again. Started some physical therapy. We found the CT of the chest and acute pulmonary emboli with a filling defect in the left main pulmonary artery. She also remained in atrial fibrillation and required Cardizem, then she started to deteriorate more. We were diuresing her and her renal function improved, became weaker, blood pressure dropped, feet get cool and she continued to decline. She on 11/08/2016. Chest x-ray from 11/05 shows continued pulmonary edema. Family had wanted measures so she at on 11/08/2016. Time of was 11:17 a.m.
== END 2016-11-08 11:18 | disposition expired | DRG 377 ==
LOC: EDBD → ED 18:42 → SUPCPDRO 18:42 → ICU 22:11 → 3S 10-24 12:36
PROVIDERS: ADMIT Emergency Medicine; ATTEND Emergency Medicine
PROC: 30233N1 Transfusion of Nonautologous Red Blood Cells into Peripheral Vein, Percutaneous Approach (ICD-10-PCS; principal; 2016-10-19)
DX: K92.2 Gastrointestinal hemorrhage, unspecified (principal); I26.99 Other pulmonary embolism without acute cor pulmonale; J18.9 Pneumonia, unspecified organism; N17.9 Acute kidney failure, unspecified; E46 Unspecified protein-calorie malnutrition; E27.40 Unspecified adrenocortical insufficiency; F03.90 Unspecified dementia, unspecified severity, without behavioral disturbance, psychotic disturbance, mood disturbance, and anxiety; F05 Delirium due to known physiological condition; E87.5 Hyperkalemia; I48.2 Chronic atrial fibrillation; D62 Acute posthemorrhagic anemia; Z68.1 Body mass index [BMI] 19.9 or less, adult; K92.1 Melena; I12.9 Hypertensive chronic kidney disease with stage 1 through stage 4 chronic kidney disease, or unspecified chronic kidney disease; E83.42 Hypomagnesemia; I48.91 Unspecified atrial fibrillation; E86.9 Volume depletion, unspecified; R62.7 Adult failure to thrive; E03.9 Hypothyroidism, unspecified; E78.5 Hyperlipidemia, unspecified; E87.6 Hypokalemia; N18.9 Chronic kidney disease, unspecified; K57.90 Diverticulosis of intestine, part unspecified, without perforation or abscess without bleeding; K21.9 Gastro-esophageal reflux disease without esophagitis; M19.90 Unspecified osteoarthritis, unspecified site; H18.51 Endothelial corneal dystrophy; F41.9 Anxiety disorder, unspecified; Z66 Do not resuscitate; Z79.899 Other long term (current) drug therapy; Z82.49 Family history of ischemic heart disease and other diseases of the circulatory system; Z83.3 Family history of diabetes mellitus
CPT/HCPCS: 36415; 36430; 71010; 71275; 74177; 80048; 80053; 81001; 82024; 82270; 82533; 82805; 83605; 83735; 83880; 85014; 85018; 85025; 86850; 86900; 86901; 86920; 87040; 87045; 87046; 87177; 87324; 88313; 89055; 93005; 93010; 94640; 94761; 96365; 96366; 96368; 96375; C9113; J0834; J1630; J1650; J1720; J1940; J2060; J2185; J2270; J2405; J2543; J3370; J3475; J3480; J7030; J7040; J7050; P9016; Q9967; 97110-GP; 97530-GP; 99285-25; S0030; S0164